=== PATIENT | male | born 1955 | race Caucasian/White ===

== ENCOUNTER → 2017-11-16 | Outpatient (CLI) | payer BC ==
[~2017-11-16] MED LIST: ASPIR 8181 MG PO; ATORVASTATIN CA20 MG PO; BUMETANIDE0.5 MG PO; CENTRUM SILVER1 EAC2 PO; DEXILANT60 MG PO; FIBER CHOICE PO; FISH OIL 1,0001 EAC2 PO; GARLIC1 EACH PO; LISINOPRIL-HCT1 EAC2 PO; LISINOPRIL/HCTZ PO; LOSARTAN POTASS25 MG PO; METOPROLOL SUCC25 MG PO; PANTOPRAZOLE SO40 MG PO; Z.0.NEXIUM40 MG MT; Z.0.NORCO 10-325 T1 MT; Z.0.ZOFRAN8 MG MT
--- NOTE | 2017-11-16 12:27 | Diagnostic Imaging Report ---
PROCEDURE: CT ABDOMEN AND PELVIS WITHOUT CONTRAST TECHNIQUE: The abdomen and pelvis were scanned utilizing a multidetector helical scanner from the diaphragm to the lesser trochanter after the oral administration of water. No IV contrast was administered per renal stone protocol. Coronal and sagittal multiplanar reformations were obtained. COMPARISON: [facility], CT, CT ABDOMEN/PELVIS , 02/17/2011, 22:25. INDICATIONS: CALCULUS OF THE KIDNEY FINDINGS: ABSENCE OF INTRAVENOUS CONTRAST DECREASES SENSITIVITY FOR DETECTION OF FOCAL LESIONS AND VASCULAR PATHOLOGY. KIDNEYS/URETERS: Right: 8-9 mm nonobstructing calculus in the right distal pelvis (series 3, image 79). Faint punctate, nonobstructing calculi are again noted in the superior pole (series 3, image 61, interpolar region (coronal image 73). Stable 5-6 mm nonobstructing calculus in the anterior mid to inferior aspect (series 3, image 81). No ureteral calculi, hydronephrosis, or obstruction. Stable mild perinephric stranding. Stable partially exophytic 0.9 and 1.3 simple cysts in the lateral interpolar region (series 3, image 76).. Left: Slight interval increase in size of 7 mm nonobstructing calculus in the superior pole (series 3, image 56, which previously measured 3-4 mm. Stable 3 mm nonobstructing calculus in the inferior pole (series 3, image 88). No ureteral calculi, hydronephrosis, or obstruction. Stable fluid density structures in the renal sinus, likely reflecting peripelvic cysts. Stable interval development of 1.6 cm mostly exophytic simple cyst in the superior to mid aspect (coronal image 69 and series 3, image 56). Stable mild perinephric stranding. PELVIC ORGANS/BLADDER: Bladder shows no focal lesions or wall thickening for degree of distention. No calculi. Prostatic enlargement, measuring 5.2 cm in transverse diameter.. Stable focal wedge-shaped atelectasis in the anterior left lower lobe adjacent to the major fissure (series 3, image 11. Lungs are otherwise clear. Visualized liver, spleen, pancreas, adrenal glands, gallbladder are unremarkable. Atherosclerotic calcification of the abdominal aorta and iliac vessels. Bowel shows no dilation, wall thickening, or obstruction. No lymphadenopathy. No aggressive lytic lesion. Soft tissues are grossly unremarkable. IMPRESSION: 1. bilateral nonobstructing calculi, as described. No ureteral calculi, hydronephrosis, or obstruction. 2. Stable right and new left simple renal cysts. 3. Prostatomegaly, likely due to BPH. Ross Galvan M.D. Dictated by: Ross Galvan M.D. on 11/16/2017 at 12:34 Electronically approved by: Ross Galvan M.D. on 11/16/2017 at 12:34
== END ==
LOC: CT 08:47
PROVIDERS: ATTEND Internal Medicine
DX: N20.0 Calculus of kidney (principal); N41.9 Inflammatory disease of prostate, unspecified
CPT/HCPCS: 74176

== ENCOUNTER → 2017-12-25 | Day surgery (SDC) | payer BC ==
[2017-12-24 12:11] LABS: BLOOD UREA NITROGEN 18 mg/dL (7-26); BUN/CREATININE RATIO 16 (6-25); CALCIUM 9.7 mg/dL (8.4-10.2); CARBON DIOXIDE 24 mmol/L (22-29); CHLORIDE 107 mmol/L (98-107); EST GLOMERULAR FILTRATION RATE > 60 ML/MIN (60-); GLUCOSE 136 mg/dL (74-118); SODIUM 141 mmol/L (136-145)
[~2017-12-25] MED LIST changes: +ACETAMINOPHEN 1000 MG/100 ML IV ONE; +ASPIR-LOW81 MG PO; +BELLADONNA/OPIUM 60 MG SUPP PR ONE; +BUPIVACAINE 0.25% 30ML SDV INJ ONE; +CEFAZOLIN SOD 1 GM VIAL ONE; +DEXAMETHASONE SOD PHOS INJ 4 MG/ML VIAL ONE; +FENTANYL CITRATE/PF 100MCG/2 ML INJ ONE; +IOPAMIDOL 610MG/1ML 300 MG/ML VIAL IV ONE; +KETOROLAC TROMETHAMINE 30 MG/ML VIAL ONE; +MENS VITAMIN PO; +MIDAZOLAM HCL 2 MG/2 ML VIAL ONE; +NEOSTIGMINE 1 MG/ML 10ML VIAL ONE; +ONDANSETRON HCL INJ 2 MG/ML VIAL ONE; +PROPOFOL IV EMULSION 10 MG/ML 20 ML VIAL ONE; +SEVOFLURANE INHAL SOLN 250 ML PEN BTL ONE
--- NOTE | 2017-12-25 05:45 | Diagnostic Imaging Report ---
EXAM: ABDOMEN-1VIEW (KUB) DATE: 12/25/2017 5:22 AM Time stamp on exam: 5:26 AM INDICATION: Presurgical assessment COMPARISON: CT of the abdomen and pelvis on 11/16/2017 FINDINGS: LINES/TUBES: None BOWEL PATTERN: No evidence for obstruction. SOFT TISSUES: No abnormal calcifications. No mass effect. LUNG BASES: Lung bases are clear BONES: No acute findings. IMPRESSION: Nonobstructive bowel gas pattern. Signed by: Dr. Dar Brown M.D. on 12/25/2017 5:41 AM
--- OUTSIDE RECORDS SUMMARY | 2017-12-25 07:02 | XMS REPORT ---
Author Author [facility] Address Unknown Phone Unavailable Care Team Providers Care Telecommunication Engineer Name Role Phone CYNDEE PLATT Unavailable Unavailable ORKYLE CREWS Unavailable Unavailable Problems This patient has no known problems. Allergies, Adverse Reactions, Alerts This patient has no known allergies or adverse reactions. Medications This patient has no known medications. Results Test Description Test Time Test Comments Text Results Atomic Results Result Comments ABDOMEN-1VIEW (KUB) [place] [address] Patient Name: JOAN WASSERMAN MR #: [id number] : 1955 Age/Sex: 62/M Req # : [id number] Adm Physician: Ordered by: CYNDEE PLATT MD Report #: [id number] Location: OR Room/Bed: Procedure: [id number] DX/ABDOMEN-1VIEW (KUB) Exam Date: 12/25/17 Exam Time : 0530 REPORT STATUS: Signed EXAM: ABDOMEN-1VIEW (KU) DATE: 2017 5:22 AM Time stamp on exam: 5:26 AM INDICATION: Presurgical assessment COMPARISON: CT of the abdomen and pelvis on 11/16/2017 FINDINGS: LINES/TUBES: None BOWEL PATTERN: No evidence for obstruction. SOFT TISSUES: No abnormal calcifications. No mass effect. LUNG BASES: Lung bases are clear BONES: No acute findings. IMPRESSION: Nonobstructive bowel gas pattern. Signed by: Dr. Dar Brown M.D. on 5:41 AM Dictated By: DAR FARLEY MD 0 Transcribed By: ROSALINA on 12/25/17540 COPY TO: CYNEDE PLATT MD CT ABDOMEN/PELVIS WO [place] [address] Patient Name: JOAN WASSERMAN MR #: [id number] : 1955 Age/Sex: 62/M Req # : [id number] Adm Physician: Ordered by: KYLE ACOSTA MD Report #: [id number] Location: CT Room/Bed: Procedure: [id number] CT/CT ABDOMEN/PELVIS WO Exam Date: 11/16/17 Exam Time: 0905 REPORT STATUS: Signed PROCEDURE: CT ABDOMEN AND PELVIS WITHOUT CONTRAST TECHNIQUE: The abdomen and pelvis were scanned utilizing a multidetector helical scanner from the diaphragm to the lesser trochanter after the oral administration of water. No IV contrast was administered per renal stone protocol. Coronal and sagittal multiplanar reformations were obtained. COMPARISON: [facility], CT, CT ABDOMEN/PELVIS WO, 02/17/2011, 22:25. INDICATIONS: CALCULUS OF THE KIDNEY FINDINGS: ABSENCE OF INTRAVENOUS CONTRAST DECREASES SENSITIVITY FOR DETECTION OF FOCAL LESIONS AND VASCULAR PATHOLOGY. KIDNEYS/URETERS: Right: 8-9 mm nonobstructing calculus in the right distal pelvis (series 3, image 79). Faint punctate, nonobstructing calculi are again noted in the superior pole (series 3, image 61, interpolar region ( coronal image 73). Stable 5-6 mm nonobstructing calculus in the anterior mid to inferior aspect (series 3, image 81). No ureteral calculi, hydronephrosis, or obstruction. Stable mild perinephric stranding. Stable partially exophytic 0.9 and 1.3 simple cysts in the lateral interpolar region (series 3, image 76).. Left: Slight interval increase in size of 7 mm nonobstructing calculus in the superior pole (series 3, image 56, which previously measured 3-4 mm. Stable 3 mm nonobstructing calculus in the inferior pole (series 3, image 88). No ureteral calculi, hydronephrosis, or obstruction. Stable fluid density structures in the renal sinus, likely reflecting peripelvic cysts. Stable interval development of 1.6 cm mostly exophytic simple cyst in the superior to mid aspect (coronal image 69 and series 3, image 56). Stable mild perinephric stranding. PELVIC ORGANS/ BLADDER: Bladder shows no focal lesions or wall thickening for degree of distention. No calculi. Prostatic enlargement, measuring 5.2 cm in transverse diameter.. Stable focal wedge-shaped atelectasis in the anterior left lower lobe adjacent to the major fissure (series 3, image 11. Lungs are otherwise clear. Visualized liver, spleen, pancreas, adrenal glands, gallbladder are unremarkable. Atherosclerotic calcification of the abdominal aorta and iliac vessels. Bowel shows no dilation, wall thickening, or obstruction. No lymphadenopathy. No aggressive lytic lesion. Soft tissues are grossly unremarkable. IMPRESSION: 1. bilateral nonobstructing calculi, as described. No ureteral calculi, hydronephrosis, or obstruction. 2. Stable right and new left simple renal cysts. 3. Prostatomegaly, likely due to BPH. Seng Galvan M.D. Dictated by: Seng Galvan M.D. on 11/16/2017 at 12:34 Electronically approved by: Seng Galvan M.D. on 11/16/2017 at 12:34 Dictated By: SENG GALVAN MD [id number] Transcribed By: MILDRED on 11/16/17 1234 COPY TO: KYLE ACOSTA MD
--- NOTE | 2018-02-24 12:31 | Operative Report ---
DATE OF PROCEDURE: December 25, 2017 PREOPERATIVE DIAGNOSES 1. Right nephrolithiasis. 2. Renal colic. 3. Hematuria. 4. Phimosis. POSTOPERATIVE DIAGNOSES 1. Right nephrolithiasis. 2. Renal colic. 3. Hematuria. 4. Phimosis. 5. Urethral stricture disease of the fossa navicularis and urethral meatus. OPERATIONS PERFORMED 1. Right-sided extracorporal shock wave lithotripsy (separate staged procedure to manage the patient's nephrolithiasis). 2. Circumcision. 3. Penile nerve block (separate procedure performed for postoperative pain control not required for the actual performance of the surgery, which is done under general anesthesia). 4. Cystourethroscopy with calibration and dilation of urethral stricture disease (separate procedure performed for the diagnosis of stricture). 5. Cystourethroscopy with bilateral ureteral dilatation and retrograde ureteropyelography (separate procedure performed to complete hematuria workup). 6. Interpretation of retrograde ureteropyelography. 7. Supervision of fluoroscopy. No radiologist present. 8. Cystourethroscopy with insertion of a right indwelling ureteral stent (separate procedure performed to relieve the renal colic). ANESTHESIA: General. COMPLICATIONS: None. CLINICAL SUMMARY: Adolfo Rivas is a 62-year-old male with bilateral nephrolithiasis and phimosis. He is brought for the above procedures. He is aware of the risks of bleeding, infection, injury to adjacent structures. He understands he will need additional procedures to manage his left-sided stone. He understood all these risks, and elected to proceed. OPERATIVE PROCEDURE IN DETAIL: Informed consent was verified. Adolfo Rivsa was properly identified and taken to the operating room and placed on the lithotripsy table in the supine position. Anesthesia was uneventfully begun. The patient's right ureteropelvic junction and renal pelvis stone was identified with biplanar fluoroscopy. A total of 2500 shocks were delivered with fragmentation noted. The patient's genitalia were prepared and draped in the usual sterile fashion. Marcaine without epinephrine was utilized to infiltrate subcutaneously circumferentially at the base of penis, as well as in the region of the dorsal penile nerves. This was done for postoperative pain control and not required for the actual performance the of surgery, which was done under general anesthesia. A circumferential incision was then made overlying the bonilla of the glans penis. The foreskin was fully retracted. A secondary incision made approximately 5 mm away from the bonilla of the glans penis along the inner preputial skin. A sleeve was then performed. The foreskin was removed. Pinpoint electrocautery was utilized to achieve hemostasis. The patient's incisions were approximated with 4-0 chromic suture in a running fashion. Cosmetic result was achieved. The patient was carefully and gently repositioned in the dorsal lithotomy position. All pressure points were well-padded. His genitalia were prepared and draped in the usual sterile fashion. The 22.5-Bermudian cystoscope sheath with the visual obturator in place was unable to be placed into the urethra meatus due to stricturing. We then utilized sounds to sound the patient's urethral meatus in the approximate region and approximately 14-Bermudian in size. We progressively dilated gently to 26-Bermudian in size. Once this was performed, we were able to place the 22.5-Bermudian cystoscope sheath with the visual obturator in place. It was guided down the otherwise unremarkable urethra past a normal sphincteric region through the prostate bed and into the patient's bladder, which exhibited trabeculations. Careful panendoscopy revealed no suspicious gross lesions. No tumors. No stones. A ureteral catheter was used to cannulate each ureter, and retrograde ureteropyelograms were performed. With cystoscopic and fluoroscopic guidance, a right-sided indwelling ureteral stent was then placed. It was coiled in the patient's kidney, as well as the patient's bladder. The retaining suture was cut short. Interpretation of retrograde ureteropyelography. Contrast was instilled in a retrograde fashion bilaterally. The left hand side exhibited hydronephrosis. The stone was visualized. It was nonobstructing. The ureter was unremarkable with no tumors. No suspicious lesions. The left-hand sided ureteral stone, as well as other filling defects, which were presumably blood clots from the lithotripsy. The stent was in good position and coiled in the patient's right kidney, as well as the patient's bladder at the end of the case. The patient's bladder was drained. The cystoscope was withdrawn. Plans will be to return the patient to the operating room for a left ESWL in conjunction, as well as right ureteroscopy with Holmium laser standby. Job#: [id number] RI cc: KYLE ACOSTA MD [facility]
== END | disposition home or self-care (01) ==
LOC: OR 07:00
PROVIDERS: ATTEND Urology
DX: N20.0 Calculus of kidney (principal); N47.1 Phimosis; N35.9 Urethral stricture, unspecified; N13.30 Unspecified hydronephrosis; N32.89 Other specified disorders of bladder; N47.7 Other inflammatory diseases of prepuce; I10 Essential (primary) hypertension; N40.1 Benign prostatic hyperplasia with lower urinary tract symptoms; E66.01 Morbid (severe) obesity due to excess calories; N43.40 Spermatocele of epididymis, unspecified; K42.9 Umbilical hernia without obstruction or gangrene; Z01.810 Encounter for preprocedural cardiovascular examination; Z01.812 Encounter for preprocedural laboratory examination; Z68.30 Body mass index [BMI] 30.0-30.9, adult; Z84.1 Family history of disorders of kidney and ureter; Z80.42 Family history of malignant neoplasm of prostate; Z80.52 Family history of malignant neoplasm of bladder
CPT/HCPCS: 36415; 50590; 52332; 54161; 74018; 80048; 88304; 93005; J0690; J1100; J1885; J2250; J2405; J2710; Q9967

== ENCOUNTER → 2018-01-18 | Day surgery (SDC) | payer BC ==
[~2018-01-18] MED LIST changes: -ACETAMINOPHEN 1000 MG/100 ML IV ONE; +AZO PO; -BUPIVACAINE 0.25% 30ML SDV INJ ONE; +FLOMAX0.4 MG PO; -KETOROLAC TROMETHAMINE 30 MG/ML VIAL ONE; +LIDOCAINE HCL 2% LOCAL INJ 5 ML SDV VIAL INJ ONE; -NEOSTIGMINE 1 MG/ML 10ML VIAL ONE; +OXYBUTYNIN CHLOR5 MG PO; +TYLENOL WITH C1 EACH PO
[2018-01-18 07:01] LABS: BASOPHILS % 0.7 % (0.0-1.0); EOSINOPHILS # (AUTO) 0.3 (0.0-0.4); EOSINOPHILS % 4.9 % (0.0-6.0); HEMATOCRIT 39.3 % (38.2-49.6); HEMOGLOBIN 13.7 g/dL (14.0-18.0); LYMPHOCYTES # (AUTO) 1.8 (1.0-3.2); LYMPHOCYTES % 29.6 % (18.0-39.1); MEAN CORPUSCULAR HEMOGLOBIN 29.1 pg (28-32); MEAN CORPUSCULAR HGB CONC 34.9 g/dL (31-35); MEAN CORPUSCULAR VOLUME 83.4 fL (81-99); MONOCYTES # (AUTO) 0.4 (0.2-0.8); MONOCYTES % 5.9 % (4.4-11.3); NEUTROPHILS # (AUTO) 3.6 (2.1-6.9); NEUTROPHILS % 58.7 % (38.7-80.0); PLATELET COUNT 234 x10e3/uL (140-360); RED BLOOD COUNT 4.71 x10e6/uL (4.3-5.7); RED CELL DISTRIBUTION WIDTH 12.9 % (11.7-14.4)
[2018-01-18 07:21] LABS: ANION GAP 12.5 mmol/L (8-16); BLOOD UREA NITROGEN 14 mg/dL (7-26); BUN/CREATININE RATIO 14 (6-25); CALCIUM 9.2 mg/dL (8.4-10.2); CARBON DIOXIDE 22 mmol/L (22-29); CHLORIDE 108 mmol/L (98-107); CREATININE, SERUM 0.99 mg/dL (0.72-1.25); EST GLOMERULAR FILTRATION RATE > 60 ML/MIN (60-); GLUCOSE 113 mg/dL (74-118); POTASSIUM 3.5 mmol/L (3.5-5.1); SODIUM 139 mmol/L (136-145)
--- NOTE | 2018-01-18 08:07 | Diagnostic Imaging Report ---
PROCEDURE:X-RAY ABDOMEN - KUB COMPARISON:[facility], CT, CT ABDOMEN/PELVIS WO, 11/16/2017, 9:04. [facility], DX, ABDOMEN-1VIEW (KUB), 12/25/2017, 5:26. INDICATIONS:PRE- OP LEFT SIDE KIDNEY STONE SURGERY FINDINGS: There is a right double-J ureteral stent present. Stone measuring 6 mm is noted adjacent to the stent within the proximal ureter at the L3 level. Left upper pole renal stone is faintly visible and partially obscured by overlying bowel gas. There are no dilated loops of bowel to suggest obstruction. There are no masses. There is no evidence of free air. No acute osseous abnormalities are present. CONCLUSION: 1. Right double-J ureteral stent with the adjacent proximal ureteral stone. 2. Left upper pole renal stone partially obscured by overlying bowel gas. Pepito Wallace D.O. Dictated by: Pepito Wallace D.O. on 01/18/2018 at 8:06 Electronically approved by: Pepito Wallace D.O. on 01/18/2018 at 8:06
--- NOTE | 2018-03-07 01:52 | Operative Report ---
DATE OF PROCEDURE: January 18, 2018 PREOPERATIVE DIAGNOSIS: Right nephrolithiasis. POSTOPERATIVE DIAGNOSES: 1. Right nephrolithiasis. 2. Distal urethral stricture. OPERATIONS PERFORMED: 1. Right-sided extracorporeal shock wave lithotripsy (separate procedure performed for the right nephrolithiasis performed in a staged fashion). 2. Supervision of fluoroscopy, no radiologist present. 3. Cystourethroscopy with calibration and dilation of urethral stricture (separate procedure performed for the urethral stricture). ANESTHESIA: General. COMPLICATIONS: None. CLINICAL SUMMARY: Adolfo Rivas is a 62-year-old man with right nephrolithiasis, has ureteral stent in place. He is brought to the operating room today for ESWL. He is aware of the risks of bleeding, infection, injury to adjacent structures, need for additional procedures, and elected to proceed. Patient also reported some voiding symptomatology and he wants to be evaluated for urethral stricture disease, which may be affecting his urination. OPERATIVE PROCEDURE IN DETAIL: Informed consent was verified. Adolfo Rivas was properly identified, taken to the operating room and placed on the lithotripsy table in supine position. Anesthesia was uneventfully begun. The patient's right ureteropelvic junction stone was localized with biplanar fluoroscopy. A total of 3000 shocks were delivered with some degree of fragmentation noted. The flexible cystoscope could not be easily placed into patient's urethral meatus past the fossa navicularis. We then calibrated the urethral stricture at approximately 12-Namibian in size and progressively dilated to 26-Namibian in size. The last dilator was held in place for a number of minutes in order to hopefully keep it open. We then placed the flexible cystoscope into the patient's urethra. We guided it down the otherwise unremarkable urethra, past a normal sphincteric region through the prostate bed, which was significant for bilobar prostatic hypertrophy with visual obstruction. We entered the patient's bladder where panendoscopy revealed no suspicious mucosal lesions, no tumors, and no stones. There was some mild encrustation of right indwelling ureteral stent. The patient's bladder was drained. The cystoscope was withdrawn. The patient was then uneventfully reversed from anesthesia and taken to recovery room in stable condition. There were no complications to the procedure. He tolerated the procedure well. Explicit postoperative instructions were given. Will plan to return back to the operating room for an additional stone surgery. This may involve a right ESWL, it may also involve a left ESWL with a right ureteroscopy and laser. Job#: [id number]
== END | disposition home or self-care (01) ==
LOC: OR 06:57
PROVIDERS: ATTEND Urology
DX: N20.0 Calculus of kidney (principal); N35.9 Urethral stricture, unspecified; Z96.0 Presence of urogenital implants; N40.1 Benign prostatic hyperplasia with lower urinary tract symptoms; N13.8 Other obstructive and reflux uropathy; N47.1 Phimosis; N43.40 Spermatocele of epididymis, unspecified; I10 Essential (primary) hypertension; K21.9 Gastro-esophageal reflux disease without esophagitis; E66.01 Morbid (severe) obesity due to excess calories; K42.9 Umbilical hernia without obstruction or gangrene; Z79.82 Long term (current) use of aspirin; Z68.30 Body mass index [BMI] 30.0-30.9, adult; Z84.1 Family history of disorders of kidney and ureter
CPT/HCPCS: 36415; 50590; 52281; 74018; 80048; 83970; 84550; 85025; J0690; J1100; J2001; J2250; J2405

== ENCOUNTER → 2018-02-22 | Outpatient (CLI) | payer BC ==
[~2018-02-22] MED LIST changes: -AZO PO; -BELLADONNA/OPIUM 60 MG SUPP PR ONE; -CEFAZOLIN SOD 1 GM VIAL ONE; -DEXAMETHASONE SOD PHOS INJ 4 MG/ML VIAL ONE; -FENTANYL CITRATE/PF 100MCG/2 ML INJ ONE; -FLOMAX0.4 MG PO; -IOPAMIDOL 610MG/1ML 300 MG/ML VIAL IV ONE; -LIDOCAINE HCL 2% LOCAL INJ 5 ML SDV VIAL INJ ONE; -MIDAZOLAM HCL 2 MG/2 ML VIAL ONE; -ONDANSETRON HCL INJ 2 MG/ML VIAL ONE; -OXYBUTYNIN CHLOR5 MG PO; -PROPOFOL IV EMULSION 10 MG/ML 20 ML VIAL ONE; -SEVOFLURANE INHAL SOLN 250 ML PEN BTL ONE; -TYLENOL WITH C1 EACH PO
--- NOTE | 2018-02-27 05:09 | Pulmonary Function Test ---
DATE OF STUDY: February 22, 2018 Restrictive spirometry: Forced vital capacity 3.83 liters, 71% of predicted. FEV1 3.16 liters, 77%. FEV1: FVC ratio 82%. ALF77-55, 91%. Diffusion capacity is moderately reduced 25.25, 74% of predicted, suggesting loss of alveolar units or ventilation perfusion imbalance. Lung volumes are increased. Total lung capacity 12.09 liters, 151% of predicted. This combination of findings suggests obstructive pulmonary disease involving small airways. Job#: [id number] EV
== END ==
LOC: RESP 08:49
PROVIDERS: ATTEND Internal Medicine
DX: R05 Cough (principal); J42 Unspecified chronic bronchitis
CPT/HCPCS: 94010; 94727; 94729

== ENCOUNTER → 2018-02-28 | Day surgery (SDC) | payer BC ==
[~2018-02-28] MED LIST changes: +AZO PO; +BELLADONNA/OPIUM 60 MG SUPP PR ONE; +CEFTRIAXONE SOD 1 GM VIAL ONE; +DEXAMETHASONE SOD PHOS INJ 4 MG/ML VIAL ONE; +FENTANYL CITRATE/PF 100MCG/2 ML INJ ONE; +FLOMAX0.4 MG PO; +GENTAMICIN 80MG/NS 100 ML 200 ML IV ONE; +GLYCOPYRROLATE INJ 1MG/ 5 ML SYR ONE; +IOPAMIDOL 610MG/1ML 300 MG/ML VIAL IV ONE; +LIDOCAINE HCL 2% LOCAL INJ 5 ML SDV VIAL INJ ONE; +MIDAZOLAM HCL 2 MG/2 ML VIAL ONE; +ONDANSETRON HCL INJ 2 MG/ML VIAL ONE; +OXYBUTYNIN CHLOR5 MG PO; +PROPOFOL IV EMULSION 10 MG/ML 20 ML VIAL ONE; +SEVOFLURANE INHAL SOLN 250 ML PEN BTL ONE; +TYLENOL WITH C1 EACH PO
--- NOTE | 2018-02-28 07:07 | Diagnostic Imaging Report ---
Exam: Abdominal film Clinical History: Preoperative study for lithotripsy Comparison: 01/18/2018 DISCUSSION: Right internal ureteral stent is unchanged in position and previously described 6 mm calculus projecting along the proximal aspect of the stent is no longer visualized; rather there are now 4-5 calculi along the midportion of the stent at the level of L4-L5, ranging in size from 2 to 4 mm. Additionally, there is an 8 mm calculus projecting over the upper pole of the left renal shadow, unchanged. Bowel gas pattern is nonobstructive. Regional skeletal structures intact. IMPRESSION: Stable position of right internal ureteral stent with interval fragmentation and distal migration of the previously described 6 mm calculus alongside the proximal portion of the stent. 4-5 small calculi ranging in size from 2 to 4 mm now lie along side the midportion of the stent. 8 mm left upper pole renal calculus unchanged. Signed by: Dr. Seng Bhatia M.D. on 02/28/2018 7:03 AM
--- NOTE | 2018-04-16 01:58 | Operative Report ---
DATE OF PROCEDURE: February 28, 2018 PREOPERATIVE DIAGNOSES: 1. Urolithiasis. 2. Potential for renal colic. 3. Indwelling ureteral stents. POSTOPERATIVE DIAGNOSES: 1. Left nephrolithiasis. 2. Right ureterolithiasis. 3. Right ureteral stricture. 4. Right hydronephrosis due to stricture. 5. Potential for left renal colic. 6. Foreign body (indwelling ureteral stent). 7. Urethral stricture disease. OPERATIONS PERFORMED: Note these were all staged procedures as part of a multistage, multistep process in managing the patient's urolithiasis. 1. Left-sided extracorporeal shock wave lithotripsy (separate procedure performed for the diagnosis of the stone located in the left kidney). 2. Right ureteroscopy with stone manipulation (separate procedure performed for the right ureterolithiasis). 3. Right ureteroscopy with dilation of stricture (separate procedure performed for the diagnosis of the stricture). 4. Cystourethroscopy with insertion of right indwelling ureteral stent (separate procedure performed to relieve the right hydronephrosis). 5. Cystourethroscopy with insertion of left indwelling ureteral stent (separate procedure performed to prevent renal colic). 6. Radiological services for supervision and interpretation of ureteroscopy. 7. Interpretation of retrograde ureteropyelography. 8. Supervision of fluoroscopy, no radiologist present. 9. Cystourethroscopy with complicated removal of right indwelling ureteral stents (separate procedure performed with separate scope for the diagnosis of stent). 10. Cystourethroscopy with calibration and dilation of urethral stricture disease. ANESTHESIA: General. COMPLICATIONS: None. CLINICAL SUMMARY: Adolfo Rivas is a 62-year-old man with bilateral urolithiasis. The patient is status post right ESWL on January 20 as well as a procedure on December 23. The patient is brought for management of his stones. He is aware of the risks of bleeding, infection, injury to adjacent structures, need for additional procedures, and elected to proceed. OPERATIVE PROCEDURE IN DETAIL: Informed consent was verified. Adolfo Rivas was properly identified, taken to the operating room and placed on the lithotripsy table in supine position. Anesthesia was uneventfully begun. The patient's left nephrolithiasis was localized with biplanar fluoroscopy. A total of 3000 shocks were delivered to treat the upper pole 8-mm stone. Some fragmentation was noted. The patient was then carefully and gently repositioned in the dorsal lithotomy position with all pressure points well padded. His genitalia were prepared and draped in usual sterile fashion. The 22.5-[place] Luc[place] cystoscope sheath with the visual obturator in place could not be placed past the fossa navicularis. Urethral meatus and distal urethra was then calibrated to 18-[place] Lucian in size and dilated to 26-[place] Lucian in size. This allowed the cystoscope to be inserted into patient's urethra. It was then guided down the unremarkable urethra past a normal sphincteric region into the patient's prostate bed which was significant for visually obstructing BPH. We entered the patient's bladder which showed diverticula, the stent emerging from the right ureteral orifice was encrusted. A guidewire was then placed alongside the stent and guided to level of the patient's kidney. The stent was then grasped, completely removed, and discarded. Ureteroscopy on the right hand side was performed. We guided the ureteroscope into the ureter where we identified multiple stone fragments. Multiple passes were made with the ureteroscope in order to remove. A semirigid ureteroscope was then inserted into the right ureter. It was guided alongside the stent to the mid ureter. We identified the mid ureteral stricture. This ureteral stricture was then gently dilated utilizing the ureteroscope over a secondary guidewire. This was uneventful. The flexible ureteroscope was then placed over the secondary guidewire and guided to level of the proximal ureter. We identified multiple stone fragments. These stone fragments were each extracted with a passing of the ureteroscope atraumatically. A flexible ureteroscopy sheath was utilized to avoid further ureteral scarring if possible. Once all ureteral stone fragments were removed, we entered the patient's intrarenal collecting system where there were Olivier's plaques present throughout, but no stones within the intrarenal collecting system. With cystoscopic and fluoroscopic guidance, a right-sided indwelling ureteral stent was then placed. It was coiled in patient's kidney as well as patient's bladder. The retaining suture was cut short. This stent was a 6-St Lucian x 28 cm indwelling ureteral stent. With cystoscopic and fluoroscopic guidance, a left-sided indwelling ureteral stent was then placed. This was a 4.5-St Lucian x 26 cm indwelling ureteral stent. It was coiled in patient's kidney as well as patient's bladder at the end of the case. Interpretation of retrograde ureteropyelography: Contrast was instilled in retrograde fashion bilaterally. There was right side hydroureteronephrosis down to the level of patient's ureteral stricture which was in turn dilated. The stent was in good position, coiled in patient's kidney as well as patient's bladder at the end of the case. The left hand side exhibited filling defects in the upper pole consistent with the previously performed ESWL. The stent was in good position, coiled in patient's kidney as well as patient's bladder at the end of the case. The patient's bladder was then drained. The cystoscope was withdrawn. A belladonna and opium suppository was placed revealing a 40 g prostate, smooth, non-fluctuant, and without any nodules. The patient was then uneventfully reversed from anesthesia and taken to recovery room in stable condition. There were no complications to the procedure. He tolerated the procedure well. Explicit postoperative instructions were given. Will plan on returning the patient to the operating room to remove his stents, performing bilateral ureteroscopies, manage stones as needed, and hopefully render the patient stent-free and stone-free. Job#: [id number]
== END | disposition home or self-care (01) ==
LOC: OR 06:52
PROVIDERS: ATTEND Urology
DX: N20.0 Calculus of kidney (principal); N20.1 Calculus of ureter; N13.1 Hydronephrosis with ureteral stricture, not elsewhere classified; N35.9 Urethral stricture, unspecified; Z46.6 Encounter for fitting and adjustment of urinary device; N40.1 Benign prostatic hyperplasia with lower urinary tract symptoms; N13.8 Other obstructive and reflux uropathy; N32.3 Diverticulum of bladder; K21.9 Gastro-esophageal reflux disease without esophagitis; I10 Essential (primary) hypertension; E78.5 Hyperlipidemia, unspecified; Z79.82 Long term (current) use of aspirin
CPT/HCPCS: 50590; 52332; 52344; 74018; 88300; C1766; C2617; J0696; J1100; J1580; J2001; J2250; J2405; Q9967

== ENCOUNTER → 2018-03-27 | Day surgery (SDC) | payer BC ==
[2018-03-25 13:00] LABS: ANION GAP 12.2 mmol/L (8-16); BLOOD UREA NITROGEN 16 mg/dL (7-26); BUN/CREATININE RATIO 16 (6-25); CALCIUM 9.7 mg/dL (8.4-10.2); CARBON DIOXIDE 24 mmol/L (22-29); CHLORIDE 109 mmol/L (98-107); CREATININE, SERUM 1.02 mg/dL (0.72-1.25); EST GLOMERULAR FILTRATION RATE > 60 ML/MIN (60-); GLUCOSE 100 mg/dL (74-118); POTASSIUM 4.2 mmol/L (3.5-5.1); SODIUM 141 mmol/L (136-145)
[~2018-03-27] MED LIST changes: +GENTAMICIN 80MG/NS 100 ML 100 ML IV ONE; -GENTAMICIN 80MG/NS 100 ML 200 ML IV ONE; -GLYCOPYRROLATE INJ 1MG/ 5 ML SYR ONE; +KETOROLAC TROMETHAMINE 30 MG/ML VIAL ONE
--- NOTE | 2018-05-05 02:52 | Operative Report ---
DATE OF PROCEDURE: March 27, 2018 PREOPERATIVE DIAGNOSES 1. Bilateral nephrolithiasis. 2. Bilateral indwelling urethral stents. 3. Urethral stricture disease. POSTOPERATIVE DIAGNOSES 1. Bilateral nephrolithiasis. 2. Bilateral indwelling urethral stents. 3. Urethral stricture disease. PROCEDURES PERFORMED: Note: These are all staged procedures as part of a multi-stage multi-step process of managing the patient's urolithiasis. 1. Cystourethroscopy with calibration and dilation of urethral stricture (separately performed for the diagnosis of stricture). 2. Cystourethroscopy with removal of indwelling ureteral stents (separately performed for the diagnosis of stents). 3. Right ureteroscopy with stone manipulation (separately performed for the right nephrolithiasis). 4. Left ureteroscopy with stone manipulation (separately performed for the left nephrolithiasis). 5. Urological services for supervision and interpretation of ureteroscopy. 6. Interpretation of retrograde ureteropyelography. 7. Supervision of fluoroscopy; no radiologist present. ANESTHESIA: General. COMPLICATIONS: None. CLINICAL SUMMARY: Adolfo Rivas is a 62-year-old man with bilateral urolithiasis who is brought for what we hope is the last stage of his stone management. He is aware of the risks of bleeding, infection, injury to adjacent structures, and need for additional procedures and elected to proceed. OPERATIVE PROCEDURE IN DETAIL: Informed consent was verified. Gus. Carlos A Rivas was properly identified, taken to operating room, and placed on the cystoscopy table in the supine position. Anesthesia was uneventfully begun. The patient was then carefully and gently repositioned in the dorsal lithotomy position with all pressure points carefully well padded. His genitalia were prepared and draped in the usual sterile fashion. The 22.5-[place] cystoscope sheath with a visual obturator in place was placed in the patient distal urethra but could not be passed by through the fossa navicularis. We, therefore, calibrated the fossa navicularis to approximately 18-[place] in size and dilated it progressively to 26-[place] Korean in size. This allowed us to easily place the cystoscope sheath anterior to the patient's otherwise unremarkable urethra, guided to pass through normal sphincteric region. Anteriorly, the prostate bed was significant for visually obstructing BPH. The most prominent location of obstruction was the apical region where the left lateral lobe was encroaching into the prostatic urethra and actually extends beyond midline over to the right hand side causing significant visual obstruction. The prostate bed was also significant for an elevated median bar with a small nubbin of an early median lobe. Going to the patient's bladder where we identified stents, significant amount of sand was also present in the patient's bladder and this was evacuated. A guidewire was then placed into the right ureter and the stent was then grasped completely, removed, and discarded. Flexible ureteroscopy was then performed. We brought the flexible ureteroscope up into the right renal pelvis where we identified a stone. No additional stones remained. were present throughout. No suspicious lesions were identified. The stone was grasped with Nitinol Tipless basket and atraumatically extracted. An identical maneuvering was performed on the left hand side. Also on the left hand side, we performed stone manipulation as well. No suspicious lesions were noted and there were throughout. The patient's bladder was then drained. The cystoscope was withdrawn. Additional findings during the surgery included the fact that the patient had a previous circumcision and still has inflammation of the glans penis. The patient was noted to have what appears to be a possible mucosal flap versus a small type of polyp in the right distal ureter. This is non-obstructing and does not appear suspicious. There was significant amount of sand noted bilaterally in the kidneys. This sand was manipulated and irrigated loose from the mucosa so that hopefully it will facilitate the passage of sand. No significantly sized stones remained in either kidney. Also, extracted significant amount of sand from the bladder during this case. Plans will be to follow the patient up for uroflowmetry and bladder ultrasonography to evaluate his voiding and also for metabolic stone workup and help to prevent future stone disease in this patient with significant bilateral disease. Job#: [id number] SEE
== END | disposition home or self-care (01) ==
LOC: OR 07:19
PROVIDERS: ATTEND Urology
DX: N20.0 Calculus of kidney (principal); N35.9 Urethral stricture, unspecified; N40.1 Benign prostatic hyperplasia with lower urinary tract symptoms; Z46.6 Encounter for fitting and adjustment of urinary device; N48.29 Other inflammatory disorders of penis; J44.9 Chronic obstructive pulmonary disease, unspecified; I10 Essential (primary) hypertension; E78.5 Hyperlipidemia, unspecified; K21.9 Gastro-esophageal reflux disease without esophagitis; Z01.812 Encounter for preprocedural laboratory examination; Z79.82 Long term (current) use of aspirin
CPT/HCPCS: 36415; 52352; 74420; 80048; 88300; J0696; J1100; J1580; J1885; J2001; J2250; J2405; Q9967

== ENCOUNTER → 2018-06-28 | Outpatient (CLI) | payer BC ==
[~2018-06-28] MED LIST changes: -BELLADONNA/OPIUM 60 MG SUPP PR ONE; -CEFTRIAXONE SOD 1 GM VIAL ONE; -DEXAMETHASONE SOD PHOS INJ 4 MG/ML VIAL ONE; -FENTANYL CITRATE/PF 100MCG/2 ML INJ ONE; -GENTAMICIN 80MG/NS 100 ML 100 ML IV ONE; -IOPAMIDOL 610MG/1ML 300 MG/ML VIAL IV ONE; -KETOROLAC TROMETHAMINE 30 MG/ML VIAL ONE; -LIDOCAINE HCL 2% LOCAL INJ 5 ML SDV VIAL INJ ONE; -MIDAZOLAM HCL 2 MG/2 ML VIAL ONE; -ONDANSETRON HCL INJ 2 MG/ML VIAL ONE; -PROPOFOL IV EMULSION 10 MG/ML 20 ML VIAL ONE; -SEVOFLURANE INHAL SOLN 250 ML PEN BTL ONE
--- NOTE | 2018-06-28 13:30 | Diagnostic Imaging Report ---
EXAMINATION: CHEST 2 VIEWS INDICATION: \S\Bronchitis, not specified as acute or chronic COMPARISON: Chest radiograph 09/17/[address] abdomen and pelvis 11/16/2017 FINDINGS: PA and lateral views TUBES and LINES: None. LUNGS: Lungs are well inflated. Reticular nodular consolidation in the right lower lobe with extensive peribronchial wall thickening. Pleural-based nodular opacity in the left lower lobe is unchanged since 11/16/2017, likely representing pleural scarring from adjacent rib fracture. PLEURA: No pleural effusion or pneumothorax. HEART AND MEDIASTINUM: The cardiomediastinal silhouette is unremarkable. BONES AND SOFT TISSUES: Unchanged multiple left-sided rib fractures. Soft tissues are unremarkable. UPPER ABDOMEN: No free air under the diaphragm. IMPRESSION: Right lower lobe consolidation with peribronchial wall thickening, new since prior exam and highly suggestive of pneumonia. Recommend follow-up chest radiograph in 6-8 weeks. Signed by: Dr. Annita Smith M.D. on 06/28/2018 1:26 PM
== END ==
LOC: RAD 12:54
PROVIDERS: ATTEND Internal Medicine
DX: J40 Bronchitis, not specified as acute or chronic (principal)
CPT/HCPCS: 71046

== ENCOUNTER → 2018-07-25 | Outpatient (CLI) | payer BC ==
--- NOTE | 2018-07-25 14:43 | Diagnostic Imaging Report ---
EXAMINATION: CHEST 2 VIEWS INDICATION: Pneumonia COMPARISON: 06/28/2018 FINDINGS: TUBES and LINES: None. LUNGS: Lungs are well inflated. Interval improved aeration of the right lung when compared with the prior exam. There is what appears to be minimal scarring/atelectasis in the region. There is no evidence of consolidated pneumonia or pulmonary edema. PLEURA: No pleural effusion or pneumothorax. HEART AND MEDIASTINUM: The cardiomediastinal silhouette is unremarkable. BONES AND SOFT TISSUES: No acute osseous lesion. Soft tissues are unremarkable. UPPER ABDOMEN: No free air under the diaphragm. IMPRESSION: Interval improved aeration of the right lung when compared with the prior exam. There is what appears to be minimal scarring/atelectasis in the region. There is no evidence of consolidated pneumonia or pulmonary edema Signed by: Dr. Modesto Holguin M.D. on 07/25/2018 2:39 PM
== END ==
LOC: RAD 14:10
PROVIDERS: ATTEND Internal Medicine
DX: J18.9 Pneumonia, unspecified organism (principal)
CPT/HCPCS: 71046

== ENCOUNTER → 2018-08-29 | Day surgery (SDC) | payer BC ==
[~2018-08-29] MED LIST changes: +FENTANYL CITRATE/PF 100MCG/2 ML INJ ONE; +FINASTERIDE5 MG PO; +HYOSCYAMINE SULFATE 0.5 MG/ML INJ ONE; +LIDOCAINE HCL 2% LOCAL INJ 5 ML SDV VIAL INJ ONE; +MIDAZOLAM HCL 2 MG/2 ML VIAL ONE; +PROPOFOL IV EMULSION 10 MG/ML 50 ML VIAL ONE; +SPIRIVA18 MCG INH
[2018-08-29 11:00] VITALS: BP 134/94
--- NOTE | 2018-08-29 11:30 | Operative Report ---
DATE OF PROCEDURE: August 29, 2018 REFERRING PHYSICIAN: Dr. Zak Acosta PROCEDURES PERFORMED 1. Esophagogastroduodenoscopy with esophageal dilatation and biopsies. 2. Colonoscopy with polypectomy. INDICATIONS FOR EGD: Dysphagia. INDICATIONS FOR COLONOSCOPY: Personal history of colon polyps, surveillance colonoscopy. MEDICATION: Patient was done under MAC. Please see anesthesiologist's note. PROCEDURE: With the patient in the left lateral decubitus position, the flexible fiberoptic Olympus gastroscope was introduced into the esophagus under direct visualization without any difficulty. There was a mild stricture noted in the cervical esophagus, and that was dilated to size 50-[place]ones[place] Springer. A minute tongue of velvety red mucosa was noted to extend proximally from the GE junction. That was biopsied to rule out Dao's. The scope was then advanced with ease into the stomach. Mucosa overlying the antrum and the body revealed some patchy erythema and low-grade edema, and biopsies were obtained and sent to stain for H. pylori. Pylorus appeared to be of normal contour and shape. It was intubated with ease, and the scope was advanced all the way to the 2nd portion of the duodenum. Biopsies were obtained from the proximal 2nd portion to rule out sprue. Mucosa overlying the duodenal bulb appeared to be within normal limits. The scope was then withdrawn back into the stomach and retroflexed. The mucosa overlying the fundus and cardia appeared to be within normal limits. The scope was then straightened out. Stomach was decompressed. Scope was subsequently withdrawn. Patient tolerated the procedure well. IMPRESSION 1. Esophageal stricture, cervical esophagus, dilated to size 50-[place] Springer. 2. Mild distal esophagitis. 3. Rule out Dao's esophagus. 4. Gastritis, biopsied. Biopsies sent to stain for H. pylori. 5. Rule out sprue. PLAN: Follow up histology. Continue Protonix 40 mg 1 p.o. a.c. b.i.d. The patient was then turned around. After adequate lubrication of the anal canal, a flexible fiberoptic Olympus colonoscope was inserted into the rectum with ease and advanced all the way to the cecum. It was then withdrawn slowly. Mucosa overlying the cecum, ascending colon and transverse colon appeared to be within normal limits. One polyp was hot biopsied from the descending colon. The sigmoid and rectum grossly appeared to be within normal limits. The scope was then retroflexed into the distal rectum, and small internal hemorrhoids were noted, none of which was actively bleeding. The scope was then straightened out. It was subsequently withdrawn. Patient tolerated the procedure well. IMPRESSION 1. Descending colon polyp, hot biopsied. 2. Internal hemorrhoids, none actively bleeding. PLAN: Follow up histology. Initiate high-fiber, low-fat diet. Initiate high-fiber supplement. Patient might benefit from a followup colonoscopy in 3 to 5 years. Job#: [id number] cc:ZAK ACOSTA MD
== END | disposition home or self-care (01) ==
LOC: OR 06:58
PROVIDERS: ATTEND Internal Medicine Gastroenterology
DX: Z12.11 Encounter for screening for malignant neoplasm of colon (principal); K63.5 Polyp of colon; K29.70 Gastritis, unspecified, without bleeding; K22.2 Esophageal obstruction; K20.9 Esophagitis, unspecified; K64.8 Other hemorrhoids; K21.9 Gastro-esophageal reflux disease without esophagitis; J44.9 Chronic obstructive pulmonary disease, unspecified; I20.9 Angina pectoris, unspecified; I10 Essential (primary) hypertension; E78.5 Hyperlipidemia, unspecified; Z01.810 Encounter for preprocedural cardiovascular examination; Z79.82 Long term (current) use of aspirin
CPT/HCPCS: 43239; 43450; 45384; 93005; J1980; J2001; J2250; 45378

== ENCOUNTER → 2018-11-19 | Outpatient (CLI) | payer BC ==
[~2018-11-19] MED LIST changes: -FENTANYL CITRATE/PF 100MCG/2 ML INJ ONE; -HYOSCYAMINE SULFATE 0.5 MG/ML INJ ONE; -LIDOCAINE HCL 2% LOCAL INJ 5 ML SDV VIAL INJ ONE; -MIDAZOLAM HCL 2 MG/2 ML VIAL ONE; -PROPOFOL IV EMULSION 10 MG/ML 50 ML VIAL ONE
--- NOTE | 2018-11-19 16:16 | Diagnostic Imaging Report ---
Exam: Abdominal film Clinical History: Follow-up kidney stones Comparison: 02/28/2018 DISCUSSION: Interval removal of right internal ureteral stent. Previously described calculus along side the stent is no longer visualized. No suspicious calcifications project over the renal shadows though evaluation is limited by overlying bowel contents. Bowel gas pattern is nonobstructive. Regional skeletal structures are intact. IMPRESSION: Interval removal of right internal ureteral stent. Previously described right ureteral calculi are no longer identified. Previously described 8 mm left upper pole renal calculus is obscured by overlying bowel contents. Signed by: Dr. Seng Bhatia M.D. on 11/19/2018 4:13 PM
== END ==
LOC: RAD 15:05
PROVIDERS: ATTEND Urology
DX: N20.0 Calculus of kidney (principal)
CPT/HCPCS: 74018

== ENCOUNTER 2019-06-04 06:57 | Inpatient (IN) | payer MEDICARE, BC ==
[2019-06-02 12:12] LABS: BASOPHILS % 0.7 % (0.0-1.0); EOSINOPHILS # (AUTO) 0.2 (0.0-0.4); EOSINOPHILS % 3.5 % (0.0-6.0); HEMATOCRIT 37.9 % (38.2-49.6); HEMOGLOBIN 12.8 g/dL (14.0-18.0); LYMPHOCYTES # (AUTO) 1.8 (1.0-3.2); LYMPHOCYTES % 30.7 % (18.0-39.1); MEAN CORPUSCULAR HEMOGLOBIN 29.4 pg (28-32); MEAN CORPUSCULAR HGB CONC 33.8 g/dL (31-35); MEAN CORPUSCULAR VOLUME 86.9 fL (81-99); MONOCYTES # (AUTO) 0.5 (0.2-0.8); MONOCYTES % 8.3 % (4.4-11.3); NEUTROPHILS # (AUTO) 3.3 (2.1-6.9); NEUTROPHILS % 56.6 % (38.7-80.0); PLATELET COUNT 236 x10e3/uL (140-360); RED BLOOD COUNT 4.36 x10e6/uL (4.3-5.7); RED CELL DISTRIBUTION WIDTH 12.7 % (11.7-14.4)
--- NOTE | 2019-06-02 12:37 | Diagnostic Imaging Report ---
EXAMINATION: CHEST 2 VIEWS INDICATION: Pre-operative COMPARISON: Multiple prior chest radiographs, most recently 07/25/2018 FINDINGS: TUBES and LINES: None. LUNGS: The lung volumes are normal. No focal consolidation or pulmonary edema. PLEURA: No pleural effusion or pneumothorax. HEART AND MEDIASTINUM: The cardiomediastinal silhouette is normal in size and contour. BONES AND SOFT TISSUES: Unchanged old fracture deformities of left lateral ribs. UPPER ABDOMEN: No free air under the diaphragm. IMPRESSION: No focal pneumonia or pulmonary edema. Signed by: Key Cintron MD on 06/02/2019 12:33 PM
[~2019-06-04] VITALS: Ht 188 cm; Wt 104.3 kg
[2019-06-04] MEDS ORDERED: CEFTRIAXONE SOD 1 GM/NS 50 ML 50 ML IV ONE (07:12)
[2019-06-04] MEDS ORDERED: GENTAMICIN 80MG/NS 100 ML 200 ML IV ONE (07:12)
[2019-06-04] MEDS: CEFTRIAXONE SOD 1 GM/NS 50 ML 50 ML IV SCH (09:00)
[2019-06-04] MEDS ORDERED: IOPAMIDOL 610MG/1ML 300 MG/ML VIAL IV ONE (09:49)
[2019-06-04] MEDS ORDERED: B&O 60MG R/S 60 MG SUPP PR ONE (09:49)
[2019-06-04] MEDS ORDERED: DIPHENHYDRAMINE HCL 25 MG CAP PO PRN (11:00)
[2019-06-04] MEDS ORDERED: ACETAMINOPHEN/CODEINE 300MG - 30MG TAB PO PRN (11:00)
[2019-06-04] MEDS ORDERED: ONDANSETRON HCL INJ 2MG/ML 2ML 2 MG/ML VIAL IV PRN (11:00)
[2019-06-04] MEDS ORDERED: B&O 60MG R/S 60 MG SUPP PR PRN (11:00)
--- NOTE | 2019-06-04 12:07 | NUR ---
Informed Dr. Joy of new patient.
[2019-06-04 12:20] LABS: BASOPHILS % 0.1 % (0.0-1.0); EOSINOPHILS # (AUTO) 0.1 (0.0-0.4); EOSINOPHILS % 0.8 % (0.0-6.0); HEMATOCRIT 37.3 % (38.2-49.6); HEMOGLOBIN 12.5 g/dL (14.0-18.0); LYMPHOCYTES # (AUTO) 0.9 (1.0-3.2); LYMPHOCYTES % 9.7 % (18.0-39.1); MEAN CORPUSCULAR HEMOGLOBIN 29.3 pg (28-32); MEAN CORPUSCULAR HGB CONC 33.5 g/dL (31-35); MEAN CORPUSCULAR VOLUME 87.4 fL (81-99); MONOCYTES # (AUTO) 0.2 (0.2-0.8); MONOCYTES % 2.5 % (4.4-11.3); NEUTROPHILS % 86.7 % (38.7-80.0); PLATELET COUNT 217 x10e3/uL (140-360); RED BLOOD COUNT 4.27 x10e6/uL (4.3-5.7); RED CELL DISTRIBUTION WIDTH 12.9 % (11.7-14.4)
[2019-06-04 12:38] LABS: ANION GAP 14.7 mmol/L (8-16); BLOOD UREA NITROGEN 12 mg/dL (7-26); BUN/CREATININE RATIO 13 (6-25); CALCIUM 8.7 mg/dL (8.4-10.2); CARBON DIOXIDE 20 mmol/L (22-29); CHLORIDE 108 mmol/L (98-107); CREATININE, SERUM 0.92 mg/dL (0.72-1.25); EST GLOMERULAR FILTRATION RATE > 60 ML/MIN (60-); GLUCOSE 110 mg/dL (74-118); POTASSIUM 4.7 mmol/L (3.5-5.1); SODIUM 138 mmol/L (136-145)
--- NOTE | 2019-06-04 12:43 | NUR ---
RECEIVED REPORT FROM [facility] AWAITING FOR PT TO ARRIVE TO FLOOR
--- NOTE | 2019-06-04 12:57 | NUR ---
RECEIVED PT TO FLOOR [id number]. PT IS IN NO S.S OF DISTRESS DENIES PAIN STATES THE NEED TO DEFECATE ASSISTED PT TO TOILET PT IS ON CBI, CLEAR URINE NOTED ON OTT CATH IV TO THE RIGHT HAND 20 G WITH NS AT 100CCHR SITE IS CLEAN AND DRY WILL CONTINUE TO MONITOR PT AT THIS TIME SIDE [id number] BED WHEELS LOCKED INSTRUCTED TO PULL ON CORD WHEN READY TO GET UP FROM TOILET PT VERBALIZED UNDERSTANDING
[2019-06-04 13:10] VITALS: BP 128/84
[2019-06-04 13:19] VITALS: BP 128/84
[2019-06-04] MEDS: PHENAZOPYRIDINE HCL 100 MG TAB PO SCH ×2 (13:33→17:30)
[2019-06-04] MEDS: D5.45%NS/KCL 20MEQ 1,000 ML IV SCH (13:33)
[2019-06-04 13:34] VITALS: BP 128/84
[2019-06-04] MEDS ORDERED: PNEUMOCOCCAL VACCINE POLYVALENT 23 MCG/0.5 ML VIAL IM SCH ×2 (14:11→17:30)
--- NOTE | 2019-06-04 14:12 | History and Physical ---
CHIEF COMPLAINT: "I have prostate surgery today." HISTORY OF PRESENT ILLNESS: This is a 63-year-old white man, who has a history of benign prostatic hypertrophy, hypertension, and hyperlipidemia. Today, the patient underwent successful TURP performed by his Urologist, Dr. Saúl Real. The patient voiced no complaints at this time. The patient states he has been off aspirin therapy since last Monday, May 27, 2019. REVIEW OF SYSTEMS: GENERAL: Weight is stable. No fever or chills. HEENT: No headaches. No vision changes. CARDIOVASCULAR/RESPIRATORY: No chest pain. No shortness of breath or cough. GI: No nausea, vomiting, diarrhea, or constipation. : The patient has Kenney catheter in place. He is currently receiving continuous bladder irrigation. NEUROMUSCULAR: No limb weakness or numbness. PAST MEDICAL HISTORY: 1. Hypertensive heart disease. 2. Hyperlipidemia. 3. Peripheral artery disease. 4. Venous insufficiency. 5. Benign prostatic hypertrophy. 6. GERD. 7. Chronic bronchitis. PAST SURGICAL HISTORY: 1. Right total knee replacement. 2. Appendectomy. 3. Left lower leg venous ablation. 4. Multiple EGDs. 5. Multiple colonoscopies. FAMILY HISTORY: Father of prostate cancer. Mother and brother of colon cancer. SOCIAL HISTORY: He is , lives with his . He is retired. History of tobacco and alcohol. ALLERGIES: NO KNOWN DRUG ALLERGIES. HOME MEDICATIONS: 1. Aspirin 81 mg daily. 2. Atorvastatin 20 mg at bedtime. 3. Finasteride 5 mg daily. 4. Losartan 100 mg daily. 5. Metoprolol succinate 25 mg daily. 6. Pantoprazole 40 mg daily. 7. Tamsulosin 0.4 mg at bedtime. 8. Spiriva inhaler one puff daily. 9. Multivitamin daily. PHYSICAL EXAMINATION: GENERAL: He is awake, alert, fluent, distress free, pleasant, cooperative with exam. VITAL SIGNS: Bedside, height 6 feet 2 inches, weight is 230 pounds. BMI is 29. INTEGUMENT: Skin is warm and dry. No pallor, jaundice, or diaphoresis. HEENT: Anicteric sclerae. Moist mucous membranes. NECK: Supple. CARDIOVASCULAR: Distant heart sounds. Regular rate and rhythm. LUNGS: No rales, no rhonchi, or wheezes. EXTREMITIES: No edema or deformity. : Kenney catheter in place with clear urine. NEUROMUSCULAR: Intact. No focal deficits appreciated. DIAGNOSES: 1. Status post transurethral resection of the prostate. 2. Benign prostatic hypertrophy. 3. Hypertensive heart disease. 4. Hyperlipidemia. 5. Family history of prostate cancer. PLAN: 1. Follow renal function and electrolytes. 2. Gentle blood pressure control. 3. Hold aspirin. 4. Continue bladder irrigation as per Urology protocol. I spent 40 minutes in the care of this patient. MD SHEREE Fabian/MAC /[id number] MTDD
[2019-06-04 16:20] VITALS: BP 124/78
[2019-06-04] MEDS: PANTOPRAZOLE SOD 40 MG TABEC PO SCH (17:30)
[2019-06-04] MEDS: DOCUSATE SODIUM 100 MG CAP PO SCH (17:30)
[2019-06-04] MEDS ORDERED: PROPOFOL IV EMULSION 10 MG/ML 20 ML VIAL ONE (18:03)
[2019-06-04] MEDS ORDERED: MIDAZOLAM HCL 2 MG/2 ML VIAL ONE (18:03)
[2019-06-04] MEDS ORDERED: ONDANSETRON HCL INJ 2MG/ML 2ML 2 MG/ML VIAL ONE (18:03)
[2019-06-04] MEDS ORDERED: LIDOCAINE HCL 2% LOCAL INJ 5 ML SDV VIAL INJ ONE (18:03)
[2019-06-04] MEDS ORDERED: SEVOFLURANE INHAL SOLN 250 ML PEN BTL ONE (18:03)
[2019-06-04] MEDS ORDERED: FENTANYL CITRATE/PF 100MCG/2 ML INJ ONE (18:03)
[2019-06-04] MEDS ORDERED: MORPHINE SULFATE INJ 10 MG/ML ONE (18:03)
[2019-06-04] MEDS ORDERED: DEXAMETHASONE SOD PHOS INJ 4 MG/ML VIAL ONE (18:03)
--- NOTE | 2019-06-04 18:47 | Operative Report ---
DATE OF PROCEDURE: 06/04/2019 SURGEON: Saúl Real MD PREOPERATIVE DIAGNOSES: 1. History of urolithiasis. 2. Obstructive benign prostatic hyperplasia. POSTOPERATIVE DIAGNOSES: 1. History of urolithiasis. 2. Obstructive benign prostatic hyperplasia. OPERATIONS PERFORMED: 1. Cystourethroscopy with bilateral ureteral catheterization and retrograde ureteropyelography (separately performed for the stone history). 2. Interpretation of retrograde ureteropyelography. 3. Supervision of fluoroscopy, no radiologist present. 4. Cystourethroscopy with transurethral resection of the prostate utilizing the plasma button electrode. ANESTHESIA: General. COMPLICATIONS: None. CLINICAL SUMMARY: Adolfo Rivas is a 63-year-old man with the above preoperative diagnosis. He has had numerous stone procedures including ESWL as well as ureteroscopy as the patient's status post circumcision with a history of urethral stricture disease. He was brought for the above procedures. He is aware of the risks of bleeding, infection, injury to adjacent structures, need for additional procedures and elected to proceed. He is also aware of incontinence and retrograde ejaculation as well as impotence risks. OPERATIVE PROCEDURE IN DETAIL: Informed consent was verified. Adolfo Rivas was properly identified, taken to the operating room, and placed on the cystoscopy table in supine position. Anesthesia was uneventfully begun. The patient was then carefully and gently repositioned in the dorsal lithotomy position with all pressure points well padded. His genitalia were prepared and draped in usual sterile fashion. The cystoscope sheath with the visual obturator in place was atraumatically inserted. The patient's urethra was guided down the relatively unremarkable urethra, which exhibited wide caliber nonobstructing scarring at the fossa navicularis. The remainder of the urethra was unremarkable, sphincteric region was normal. The prostate bed, which was significant for visual obstructing, bilobar benign prostatic hyperplasia with kissing lateral lobes, the distal left lateral lobe at the region of the apex had a significant bulge, there was extending beyond the midline and definitely obstructing the prostatic urethra just proximal to the verumontanum. We entered the patient's bladder and drained it. Panendoscopy revealed fine sand throughout the bladder, but no large stones, no tumors, no suspicious lesions. Trabeculations were noted. An 8-[place] catheter was used to cannulate each ureter and retrograde ureteral pyelograms were performed. Interpretation of retrograde ureteropyelography contrast was instilled in retrograde fashion bilaterally. There were no tumors, no stones, and no diverticula. Unobstructed drainage was observed bilaterally fluoroscopically. The cystoscope was withdrawn and the resectoscope was placed. Plasma button electrode was then utilized to vaporize the prostate from the bladder neck tube, but never passed the verumontanum and down the surgical capsule, pinpoint electrocautery was utilized to achieve hemostasis. The resectoscope was withdrawn Kenney catheter was placed, it was placed in continuous irrigation, it is irrigated to and fro to ensure work properly. A belladonna and opium suppository were placed revealing a 35 to 40 g prostate, smooth and non-fluctuant without any nodules, and the patient was uneventfully reversed from anesthesia and taken to recovery room in stable condition. There were no complications to the procedure. He tolerated the procedure well. We will proceed with routine postoperative care and ongoing urological followup. MD BERNARDO Galan/MAC /[id number]
--- NOTE | 2019-06-04 19:17 | NUR ---
Bedside report and walking rounds complete. Pt resting in bed and in no apparent distress. Pt on CBI. All safety measures ensured.
[2019-06-04 20:00] VITALS: BP 139/81
[2019-06-04 20:11] VITALS: BP 139/81
[2019-06-04] MEDS: TAMSULOSIN HCL 0.4 MG CAP PO SCH (20:26)
[2019-06-04] MEDS: ATORVASTATIN 20 MG TAB PO SCH (20:27)
[2019-06-05] VITALS (9 sets, daily range): BP systolic 122–150; BP diastolic 73–81
[2019-06-05] MEDS: D5.45%NS/KCL 20MEQ 1,000 ML IV SCH ×3 (00:39→19:31)
[2019-06-05 05:57] LABS: BASOPHILS % 0.2 % (0.0-1.0); EOSINOPHILS % 0.4 % (0.0-6.0); HEMATOCRIT 35.9 % (38.2-49.6); HEMOGLOBIN 12.2 g/dL (14.0-18.0); LYMPHOCYTES # (AUTO) 1.6 (1.0-3.2); LYMPHOCYTES % 15.5 % (18.0-39.1); MEAN CORPUSCULAR HEMOGLOBIN 29.2 pg (28-32); MEAN CORPUSCULAR VOLUME 85.9 fL (81-99); MONOCYTES # (AUTO) 0.7 (0.2-0.8); MONOCYTES % 7.1 % (4.4-11.3); NEUTROPHILS # (AUTO) 7.8 (2.1-6.9); NEUTROPHILS % 76.5 % (38.7-80.0); PLATELET COUNT 222 x10e3/uL (140-360); RED BLOOD COUNT 4.18 x10e6/uL (4.3-5.7); RED CELL DISTRIBUTION WIDTH 12.9 % (11.7-14.4)
[2019-06-05 06:21] LABS: ALANINE AMINOTRANSFERASE 17 IU/L (0-55); ALBUMIN 3.2 g/dL (3.5-5.0); ALBUMIN/GLOBULIN RATIO 1.1 (0.8-2.0); ALKALINE PHOSPHATASE 58 IU/L (40-150); ANION GAP 15.3 mmol/L (8-16); BLOOD UREA NITROGEN 13 mg/dL (7-26); BUN/CREATININE RATIO 15 (6-25); CALCIUM 8.8 mg/dL (8.4-10.2); CARBON DIOXIDE 20 mmol/L (22-29); CHLORIDE 108 mmol/L (98-107); CREATININE, SERUM 0.84 mg/dL (0.72-1.25); EST GLOMERULAR FILTRATION RATE > 60 ML/MIN (60-); GLUCOSE 118 mg/dL (74-118); POTASSIUM 4.3 mmol/L (3.5-5.1); SODIUM 139 mmol/L (136-145)
[2019-06-05] MEDS: METOPROLOL SUCCINATE 25 MG TAB XL PO SCH (07:45)
[2019-06-05] MEDS: PHENAZOPYRIDINE HCL 100 MG TAB PO SCH ×3 (07:45→17:06)
[2019-06-05] MEDS: PANTOPRAZOLE SOD 40 MG TABEC PO SCH ×2 (07:45→17:06)
[2019-06-05] MEDS: LOSARTAN POTASSIUM 25 MG TAB PO SCH (07:45)
[2019-06-05] MEDS: FINASTERIDE 5 MG TAB PO SCH (07:45)
[2019-06-05] MEDS: DOCUSATE SODIUM 100 MG CAP PO SCH ×2 (07:45→17:06)
[2019-06-05] MEDS: CEFTRIAXONE SOD 1 GM/NS 50 ML 50 ML IV SCH (07:45)
[2019-06-05] MEDS: TIOTROPIUM 18 MCG INH POWDER INH SCH (11:18)
--- NOTE | 2019-06-05 19:27 | NUR ---
Patient 101.2 F present upon assessment. Denies pain. CBI in place and draining orange tinged urine. Paged Dr. Joy for orders.
[2019-06-05] MEDS ORDERED: ACETAMINOPHEN 325 MG TAB PO ONE (20:15)
[2019-06-05] MEDS: ATORVASTATIN 20 MG TAB PO SCH (20:43)
[2019-06-05] MEDS: TAMSULOSIN HCL 0.4 MG CAP PO SCH (20:43)
[2019-06-06] VITALS: BP 129/83
[2019-06-06] MEDS: D5.45%NS/KCL 20MEQ 1,000 ML IV SCH ×2 (02:54→14:50)
[2019-06-06 04:00] VITALS: BP 135/87
[2019-06-06 05:58] LABS: BASOPHILS # (AUTO) 0.1 (0.0-0.1); BASOPHILS % 0.6 % (0.0-1.0); EOSINOPHILS # (AUTO) 0.3 (0.0-0.4); EOSINOPHILS % 3.6 % (0.0-6.0); HEMOGLOBIN 13.4 g/dL (14.0-18.0); LYMPHOCYTES # (AUTO) 2.3 (1.0-3.2); LYMPHOCYTES % 25.4 % (18.0-39.1); MEAN CORPUSCULAR HEMOGLOBIN 29.2 pg (28-32); MEAN CORPUSCULAR HGB CONC 33.5 g/dL (31-35); MEAN CORPUSCULAR VOLUME 87.1 fL (81-99); MONOCYTES # (AUTO) 0.7 (0.2-0.8); MONOCYTES % 7.2 % (4.4-11.3); NEUTROPHILS # (AUTO) 5.7 (2.1-6.9); NEUTROPHILS % 62.9 % (38.7-80.0); PLATELET COUNT 215 x10e3/uL (140-360); RED BLOOD COUNT 4.59 x10e6/uL (4.3-5.7); RED CELL DISTRIBUTION WIDTH 13.2 % (11.7-14.4)
[2019-06-06 06:19] LABS: ANION GAP 14.1 mmol/L (8-16); BLOOD UREA NITROGEN 13 mg/dL (7-26); BUN/CREATININE RATIO 14 (6-25); CARBON DIOXIDE 23 mmol/L (22-29); CHLORIDE 108 mmol/L (98-107); CREATININE, SERUM 0.94 mg/dL (0.72-1.25); EST GLOMERULAR FILTRATION RATE > 60 ML/MIN (60-); GLUCOSE 95 mg/dL (74-118); POTASSIUM 4.1 mmol/L (3.5-5.1); SODIUM 141 mmol/L (136-145)
--- NOTE | 2019-06-06 07:08 | Diagnostic Imaging Report ---
Examination: Single AP view of the chest. COMPARISON: 06/02/2019 INDICATION: Fever, pneumonia DISCUSSION: The lungs are well-inflated and without focal consolidation, pleural effusion, or pneumothorax. Stable cardiomediastinal contour with tortuosity and atherosclerotic calcification of the thoracic aorta. No pulmonary edema. No acute osseous abnormality. Healed left clavicular and multiple healed left-sided rib fracture deformities. IMPRESSION: No consolidative pneumonia. Signed by: Dr. Seng Bhatia M.D. on 06/06/2019 7:05 AM
--- NOTE | 2019-06-06 07:10 | NUR ---
Received patient mid fowlers position, side rails upx2, call light within reach. AAOx4 to time, person, place, situation. Respirations even and unlabored. On continuous irrigation. Instructed to use call light for assistance. Voiced understanding.
[2019-06-06] MEDS: TIOTROPIUM 18 MCG INH POWDER INH SCH (09:00)
[2019-06-06] MEDS: CEFTRIAXONE SOD 1 GM/NS 50 ML 50 ML IV SCH (09:19)
[2019-06-06] MEDS: DOCUSATE SODIUM 100 MG CAP PO SCH ×2 (09:19→15:46)
[2019-06-06] MEDS: LOSARTAN POTASSIUM 25 MG TAB PO SCH (09:19)
[2019-06-06] MEDS: PANTOPRAZOLE SOD 40 MG TABEC PO SCH ×2 (09:19→15:46)
[2019-06-06] MEDS: METOPROLOL SUCCINATE 25 MG TAB XL PO SCH (09:19)
[2019-06-06] MEDS: PHENAZOPYRIDINE HCL 100 MG TAB PO SCH ×3 (09:19→15:46)
[2019-06-06] MEDS: FINASTERIDE 5 MG TAB PO SCH (09:19)
[2019-06-06 09:30] VITALS: BP 158/68
--- NOTE | 2019-06-06 10:35 | Discharge Summary ---
ADMIT DIAGNOSES: 1. Obstructive benign prostatic hyperplasia. 2. Hypertensive heart disease. DISCHARGE DIAGNOSES: 1. Status post transurethral resection of the prostate. 2. Obstructive benign prostatic hyperplasia. 3. Hypertensive heart disease. HOSPITAL COURSE: This is a 63-year-old white man, who has known history of BPH, hypertension. The patient was admitted to [facility] with diagnosis of obstructive benign prostatic hyperplasia. During this hospitalization, the patient was seen by urologist. He underwent successful transurethral resection of the prostate using plasma button electrode. The patient tolerated the surgery quite well. The patient stay in the hospital two nights because he received continuous bladder irrigation. Prior to discharge, the patient's urine was clear. He is also tolerating regular diet on discharge. LABS ON DISCHARGE: On day of discharge, the patient's hemoglobin was 13.4 g. The patient's white blood cell count was 9000 with 62% segmented neutrophils. The patient's BUN and creatinine on day of discharge, 13 and 0.94 respectively. DISCHARGE MEDICATIONS: 1. Tamsulosin 0.4 mg at bedtime. 2. Atorvastatin 20 mg at bedtime. 3. Pantoprazole 40 mg b.i.d. 4. Pyridium 100 mg b.i.d. for 30 days. 5. Colace 100 mg b.i.d. 6. Metoprolol succinate 25 mg daily. 7. Losartan 100 mg daily. 8. Finasteride 5 mg daily. 9. Spiriva inhaler one puff daily. 10. Tylenol No. 3 one pill every 4 hours p.r.n. intense pain. FOLLOWUP INSTRUCTIONS: The patient was instructed to follow up with Dr. Joy, his primary care physician within 2-[address] Real within a week. I did not inform the patient that he may not need to continue tamsulosin since he underwent TURP, but this decision will be left to his urologist. MD SHEREE Fabian/MAC /[id number]
[2019-06-06 10:38] VITALS: BP 158/68
[2019-06-06 12:13] VITALS: BP 152/85
--- NOTE | 2019-06-06 14:58 | NUR ---
24F catheter discontinued as ordered. Tolerated well. Patient due to void. Patient aware of doctor's orders for serial urine
[2019-06-06] MEDS ORDERED: TYLENOL WITH C1 EACH PO (15:12)
[2019-06-06] MEDS ORDERED: LEVAQUIN500 MG PO (15:12)
--- NOTE | 2019-06-06 15:30 | NUR ---
Patient voided orange tinged urine without distress. Will continue to collect serial urine
[2019-06-06 16:05] VITALS: BP 152/93
--- NOTE | 2019-06-06 16:30 | NUR ---
Ambulating in hallway. No s/s of acute distress noted.
--- NOTE | 2019-06-06 17:40 | NUR ---
Dr.Hampel Beltrán aware 4th serial urine clear. Per Dr.Hampel Beltrán "you don't have to collect 5th one. Patient cleared to go." Paged to notify of patient's status.
[2019-06-06] MEDS ORDERED: ACETAMINOPHEN 325 MG TAB PO ONE (18:00)
--- NOTE | 2019-06-06 18:00 | NUR ---
Dr. Joy aware of T99.8. Per give Tylenol once and okay to discharge.
--- NOTE | 2019-06-06 18:20 | NUR ---
Right hand IV discontinued. No signs of infiltration noted. 2x2 gauze and tape placed. Taken via wheelchair by PCT to personal car. Accompanied by . AAOX4 to time, person,place, situation. Respirations even and unlabored. Denies pain. Discharge instructions, rx, and all personal belongings taken with patient.
== END 2019-06-06 18:20 | disposition home or self-care (01) | DRG 714 ==
LOC: OR 06:57 → PACU V 10:57 → MED/SURG 12:45
PROVIDERS: ADMIT Internal Medicine; ATTEND Internal Medicine
PROC: 0V508ZZ Destruction of Prostate, Via Natural or Artificial Opening Endoscopic (ICD-10-PCS; principal; 2019-06-04 09:00)
PROC: BT141ZZ Fluoroscopy of Kidneys, Ureters and Bladder using Low Osmolar Contrast (ICD-10-PCS; 2019-06-04 09:00)
PROC: 3E0234Z Introduction of Serum, Toxoid and Vaccine into Muscle, Percutaneous Approach (ICD-10-PCS; 2019-06-04 09:00)
DX: N40.0 Benign prostatic hyperplasia without lower urinary tract symptoms (principal); I11.9 Hypertensive heart disease without heart failure; E78.5 Hyperlipidemia, unspecified; I73.9 Peripheral vascular disease, unspecified; I87.2 Venous insufficiency (chronic) (peripheral); K21.9 Gastro-esophageal reflux disease without esophagitis; J42 Unspecified chronic bronchitis; Z23 Encounter for immunization; Z87.891 Personal history of nicotine dependence; Z87.442 Personal history of urinary calculi; Z79.82 Long term (current) use of aspirin; Z80.42 Family history of malignant neoplasm of prostate
CPT/HCPCS: 36415; 71045; 71046; 74420; 80048; 80053; 82948; 83735; 85025; 90732; 93005; J0696; J1100; J1580; J2001; J2250; J2270; J2405; J3010

== ENCOUNTER 2019-09-03 09:26 | Observation (INO) | payer BC, MEDICARE ==
[~2019-09-03] VITALS: Ht 188 cm; Wt 104.3 kg
[~2019-09-03 09:26] MED LIST changes: +LEVAQUIN500 MG PO
[2019-09-03] MEDS ORDERED: DIATRIZOATE MEGL/DIATRIZOA SOD 30 ML BTL PO ONE (09:45)
--- NOTE | 2019-09-03 10:45 | NUR ---
PT TO BE ADMITTED, PT AND FAMILY AWARE OF POC, VITAL SIGNS STABLE, PT VOICES NO COMPLAINTS AT THIS TIME.
--- NOTE | 2019-09-03 10:57 | Diagnostic Imaging Report ---
TECHNIQUE: CT of the chest WITHOUT intravenous contrast. Dose modulation, iterative reconstruction, and/or weight-based adjustment of the mA/kV was utilized to reduce the radiation dose to as low as reasonably achievable. INDICATION: 63-year-old man with throat concerns. COMPARISON: Chest radiograph 06/06/2019. FINDINGS: ABSENCE OF INTRAVENOUS CONTRAST DECREASES SENSITIVITY FOR DETECTION OF FOCAL LESIONS AND VASCULAR PATHOLOGY. LINES/TUBES: None. LUNGS AND AIRWAYS: Central airways are patent. 5 mm noncalcified nodule in the left lower lobe (axial lung window series image 71). Subcentimeter calcified granuloma in the right middle lobe. Linear atelectasis and/or scarring in the left lower lobe also contains a subcentimeter calcified granuloma. PLEURA: The pleural spaces are clear. HEART AND MEDIASTINUM: The visualized thyroid gland is normal. No significant mediastinal, hilar, or axillary lymphadenopathy. Calcified subcentimeter mediastinal and right hilar lymph nodes, likely related to prior granulomatous disease. The heart and pericardium are within normal limits. Atherosclerotic coronary artery calcifications. Apparent impacted food debris within the small hiatal hernia. Patulous esophagus contains air and fluid. Oral contrast is seen within the stomach. SOFT TISSUES AND BONES: Degenerative changes of the visualized spine. Chronic deformities of left-sided ribs. Soft tissues are unremarkable. UPPER ABDOMEN: Left renal cysts measure up to 1.5 x 2.4 cm. IMPRESSION: Apparent impacted food debris in the small hiatal hernia associated with patulous and fluid-containing esophagus. These findings may be seen in the setting of partial obstruction from the impacted food debris. 5 mm pulmonary nodule in the left lower lobe. If patient is at high risk for lung neoplasm, then optional follow-up chest CT may be obtained in 12 months for reassessment. Otherwise, no routine follow-up imaging recommended. Signed by: Luma Arrington MD on 09/03/2019 10:54 AM
--- NOTE | 2019-09-03 11:04 | NUR ---
[facility] CALLED FOR TRANSPORT 30MIN ETA
[2019-09-03 12:04] VITALS: BP 167/99
--- NOTE | 2019-09-03 12:16 | NUR ---
Received patient from [facility], a/ox3, PMH significant for esophageal stricture and GERD, patient was having dinner and a piece is still stuck in his throat at this time, he is currently NPO, Dr. Robbins for GI is consulted and has been notified by [facility]. No c/o pains, call light within reach, will monitor.
[2019-09-03 12:30] VITALS: BP 155/85
--- NOTE | 2019-09-03 14:04 | NUR ---
Call to Dr. Joy for orders in patient's records given NPO status
[2019-09-03] MEDS ORDERED: DEXTROSE 5%/0.45% SOD CHL 1,000 ML IV ONE (14:15)
--- NOTE | 2019-09-03 14:15 | NUR ---
Call back from Dr. Joy and orders for D51/2 at 100cc/hr and protonix IV
[2019-09-03] MEDS ORDERED: DEXTROSE 5%/0.45% SOD CHL 1,000 ML IV SCH (14:30)
[2019-09-03] MEDS ORDERED: KETOROLAC TROMETHAMINE 30 MG/ML VIAL ONE (16:33)
[2019-09-03] MEDS ORDERED: ACETAMINOPHEN 1000 MG/100 ML 100 ML IV ONE (16:33)
[2019-09-03 17:06] VITALS: BP 126/78
--- NOTE | 2019-09-03 17:27 | NUR ---
Patient returned from having procedure, full liquid diet ordered, attending saw patient and will be discharged today if tolerated dinner. No distress at this point, will monitor, call light within reach,
--- NOTE | 2019-09-03 17:52 | History and Physical ---
History And Physical And Discharge Summary ADMITTING DIAGNOSES: 1. Esophageal food bolus obstruction. 2. Gastroesophageal reflux disease. 3. Hypertension. HOSPITAL COURSE/HISTORY OF PRESENT ILLNESS: This is a 63-year-old white man, who presented to [facility] with a 1-day history of difficulty swallowing. The patient states that one day prior to admission, he was eating pork chop and potatoes. He felt as though food was lodged in his esophagus. The patient thought the food would pass on its own. The patient presented to the emergency room today because the sensation of food obstruction in the esophagus was not resolving. The patient's corporate accountant namely Dr. Jay Robbins performed EGD on the patient, which revealed a food bolus in the distal esophagus. The food bolus was actually pushed into the stomach. The patient did not undergo esophageal dilatation because the distal esophagus appeared to be very friable. The patient's condition on discharge is stable. He was tolerating a full liquid diet on discharge. PAST MEDICAL HISTORY: 1. Hypertensive heart disease. 2. Benign prostatic hypertrophy. 3. GERD. 4. Hyperlipidemia. 5. Peripheral artery disease. 6. Chronic bronchitis. 7. Venous insufficiency. ALLERGIES: NO KNOWN DRUG ALLERGIES. HOME MEDICATIONS: 1. Tamsulosin 0.4 mg at bedtime. 2. Atorvastatin 20 mg at bedtime. 3. Pantoprazole 40 mg b.i.d. 4. Metoprolol succinate 25 mg daily. 5. Losartan 100 mg daily. 6. Finasteride 5 mg daily. 7. Spiriva inhaler one puff daily. SURGICAL HISTORY: 1. TURP in May of 2019. 2. Right total knee replacement. 3. Appendectomy. 4. Left lower leg venous ablation. 5. Multiple EGDs. 6. Multiple colonoscopies. FAMILY HISTORY: Father of prostate cancer. Mother and brother of colon cancer. SOCIAL HISTORY: He is , lives with his . He is retired. No history of tobacco or alcohol use. REVIEW OF SYSTEMS: GENERAL: Weight is stable. No fever or chills. HEENT: No headaches. No vision changes. CARDIOVASCULAR/RESPIRATORY: The patient does complain of retrosternal discomfort from the esophageal food bolus. No shortness of breath or cough. GI: Complains of difficulty swallowing from the obstructed food bolus. No nausea or vomiting. No diarrhea. No constipation. : Denies any BPH or UTI symptoms. NEUROMUSCULAR: No limb weakness or numbness. PHYSICAL EXAMINATION: GENERAL: He is awake, alert, and fluent. His is at bedside. VITAL SIGNS: Height 6 feet 2 inches, weight is 230 pounds, BMI 29. Blood pressure is 126/78, pulse 76, respiratory rate is 18, oxygen saturation 94% on room air, and temperature 97.0. INTEGUMENT: Skin is warm and dry. No pallor, jaundice or diaphoresis. HEENT: Anicteric sclerae. Moist mucous membranes. NECK: Supple. CARDIOVASCULAR: Regular rate and rhythm with an S4 gallop. LUNGS: No rales, no rhonchi, no wheezes. ABDOMEN: Benign. EXTREMITIES: No edema or deformity. NEUROLOGIC: Intact. DISCHARGE DIAGNOSES: 1. Status post EGD with food bolus removal. 2. Esophageal stricture. 3. Gastroesophageal reflux disease. 4. Hypertensive heart disease. PLAN: 1. Discharge home today if tolerating a full liquid diet. 2. The patient will follow up with his corporate accountant next week, namely Dr. Jay Robbins. 3. The patient will return on an outpatient basis and will likely undergo elective EGD with esophageal dilatation. 4. The patient will continue Protonix 40 mg twice a day until further notice. 5. The patient instructed to avoid meat, potatoes and rice until further notice. 6. Recommend the patient to drink copious fluids when eating. 7. The patient instructed to take small bites when eating. I spent 45 minutes in the care of the patient. MD SHEREE Fabian/MAC /[id number]
--- NOTE | 2019-09-03 18:05 | NUR ---
Patient cleared for discharge by Dr. Joy, provided with discharge documentation, patient to f/u with Dr. Robbins for out patient dilatation and has been provided with instructions. Education on full liquid diet and soft foods provided. IV line removed, cath tip in place, dressing applied.
[2019-09-03] MEDS ORDERED: DEXAMETHASONE SOD PHOS INJ 4 MG/ML VIAL ONE (18:42)
[2019-09-03] MEDS ORDERED: SUCCINYLCHOLINE 200 MG/10 ML SYR ONE (18:42)
[2019-09-03] MEDS ORDERED: LIDOCAINE HCL 2% LOCAL INJ 5 ML SDV VIAL INJ ONE (18:42)
[2019-09-03] MEDS ORDERED: PROPOFOL IV EMULSION 10 MG/ML 50 ML VIAL ONE (18:42)
[2019-09-03] MEDS ORDERED: ONDANSETRON HCL INJ 2MG/ML 2ML 2 MG/ML VIAL ONE (18:42)
[2019-09-03] MEDS ORDERED: SEVOFLURANE INHAL SOLN 250 ML PEN BTL ONE (18:42)
[2019-09-03] MEDS ORDERED: GLUCAGON FOR INJ 1 MG VIAL ONE (18:42)
[2019-09-03] MEDS ORDERED: FENTANYL CITRATE/PF 100MCG/2 ML INJ ONE (19:20)
[2019-09-03] MEDS ORDERED: MIDAZOLAM HCL 2 MG/2 ML VIAL ONE (19:20)
--- NOTE | 2019-09-03 19:42 | Operative Report ---
DATE OF PROCEDURE: 09/03/2019 SURGEON: Jay Robbins MD PROCEDURE: EGD with foreign body removal. INDICATIONS FOR PROCEDURE: Esophageal obstruction. MEDICATIONS: The patient was done under general endotracheal anesthesia, please see anesthesiologist's note. DESCRIPTION OF PROCEDURE: After induction of adequate general endotracheal anesthesia with the patient in the left lateral decubitus position, a flexible fiberoptic Olympus gastroscope was introduced into the esophagus under direct visualization without any difficulty. A large meat bolus was noted to be impacted in the distal esophagus. It was partially removed per polypectomy snare and the rest was pushed into the stomach. There was a tight friable stricture noted at the GE junction, which was traversed with ease with the scope. Mucosa overlying the antrum and the body revealed some patchy areas of erythema. The pylorus was intubated with ease and the scope was advanced all the way to the second portion of the duodenum. The scope was then withdrawn slowly. Mucosa overlying the proximal second portion and duodenal bulb appeared to be within normal limits. The scope was then withdrawn back into the stomach and retroflexed and some of the debris from the meat bolus was noted in the fundus. The scope was then straightened out, it was subsequently withdrawn. The patient tolerated the procedure well. IMPRESSION: 1. Meat bolus impacted in distal esophagus, partially removed per polypectomy snare and rest was pushed into the stomach. 2. Esophageal stricture at GE junction, friable. 3. Gastritis. PLAN: Initiate full liquid diet. Start Protonix 40 mg one p.o. before meals b.i.d. The patient will need an EGD with esophageal dilatation electively one week after discharge. Jay Robbins MD [facility] [place]/MAC /[id number] cc: Zak Joy MD
[2019-09-03] MEDS ORDERED: PANTOPRAZOLE 40 MG 10ML VIAL IV SCH (21:00)
== END 2019-09-03 18:20 | disposition home or self-care (01) ==
LOC: FSED 09:26 → ERHOLD 10:59 → MED/SURG 12:06
PROVIDERS: ADMIT Internal Medicine; ATTEND Internal Medicine
DX: T17.228A Food in pharynx causing other injury, initial encounter (principal); R09.89 Other specified symptoms and signs involving the circulatory and respiratory systems; K29.70 Gastritis, unspecified, without bleeding; K22.2 Esophageal obstruction; I11.9 Hypertensive heart disease without heart failure; K21.9 Gastro-esophageal reflux disease without esophagitis; E78.5 Hyperlipidemia, unspecified; I87.2 Venous insufficiency (chronic) (peripheral); J42 Unspecified chronic bronchitis; N40.0 Benign prostatic hyperplasia without lower urinary tract symptoms
CPT/HCPCS: 43247; 43499; 71250; 80053; 85025; 85610; 99284; C9113; G0378; J0131; J1100; J1610; J1885; J2001; J2250; J2405; J2704; J3010; 43239

== ENCOUNTER → 2019-09-24 | Outpatient (CLI) | payer BC ==
[~2019-09-24] MED LIST changes: +BENEFIBER1 EAC1 PO; +CULTURELLE1 EACH PO
--- NOTE | 2019-09-24 17:16 | Diagnostic Imaging Report ---
Exam: KUB - 2 views Indication: Renal calculi Comparison: KUB of 11/19/2018 Findings: Left lower pole 2 mm renal calculus. No other definite radiographically apparent renal calculi. Nonobstructive bowel gas pattern. No free air. Minimally visualized lung bases are clear. Mild degenerative changes of both hip joints. Impression: Left lower pole 2 mm renal calculus. Signed by: Key Cintron MD on 09/24/2019 5:12 PM
== END ==
LOC: RAD 16:44
PROVIDERS: ATTEND Urology
DX: N20.0 Calculus of kidney (principal)
CPT/HCPCS: 74018

== ENCOUNTER → 2019-09-30 | Day surgery (SDC) | payer BC ==
[~2019-09-30] MED LIST changes: +FENTANYL CITRATE/PF 100MCG/2 ML INJ ONE; +MIDAZOLAM HCL 2 MG/2 ML VIAL ONE; +PROPOFOL IV EMULSION 10 MG/ML 20 ML VIAL ONE
[2019-09-30 15:05] VITALS: BP 133/84
--- NOTE | 2019-09-30 16:10 | Operative Report ---
DATE OF PROCEDURE: 09/30/2019 SURGEON: Jay Robbins MD PROCEDURE: EGD with esophageal dilatation and biopsies. INDICATIONS FOR EGD: Dysphagia to solids, heartburn. MEDICATIONS: The patient was done under MAC, please see anesthesiologist's note. PROCEDURE IN DETAIL: With the patient in left lateral decubitus position, a flexible fiberoptic Olympus gastroscope was introduced into the esophagus under direct visualization without any difficulty. There was some transient concentric rings noted on the way down compatible with eosinophilic esophagitis and biopsies were obtained. A mild stricture was noted at the GE junction that was dilated to size 52-[place] Springer. The scope was then advanced with ease into the stomach traversing a small sliding hiatal hernia. Mucosa overlying the antrum and the body revealed some patchy erythema and low-grade to moderate edema, and biopsies were obtained and sent to stain for H. pylori. The pylorus was of normal contour and shape. It was intubated with ease and the scope was advanced all the way to the second portion of the duodenum. The scope was then withdrawn slowly. Mucosa overlying the proximal second portion and duodenal bulb appeared to be within normal limits. The scope was then withdrawn back into the stomach and retroflexed, mucosa overlying the fundus and the cardia appeared to be within normal limits. The scope was then straightened out, it was subsequently withdrawn, and the patient tolerated the procedure well. IMPRESSION: 1. Rule out eosinophilic esophagitis. 2. Mild stricture GE junction, dilated to size 52-[place] Springer. 3. Small sliding hiatal hernia. 4. Gastritis, biopsied, biopsies sent to stain for Helicobacter pylori. PLAN: Follow up histology. Continue Protonix 40 mg 1 p.o. before meals b.i.d. Jay Robbins MD [facility] [place]/MODL /[id number] cc: Zak Joy MD
== END | disposition home or self-care (01) ==
LOC: OR 12:16
PROVIDERS: ATTEND Internal Medicine Gastroenterology
DX: K22.2 Esophageal obstruction (principal); K29.70 Gastritis, unspecified, without bleeding; K44.9 Diaphragmatic hernia without obstruction or gangrene; K20.8 Other esophagitis; K22.8 Other specified diseases of esophagus; Z86.010 Personal history of colon polyps; Z71.3 Dietary counseling and surveillance; J44.9 Chronic obstructive pulmonary disease, unspecified; I10 Essential (primary) hypertension; E78.00 Pure hypercholesterolemia, unspecified; Z01.810 Encounter for preprocedural cardiovascular examination; Z79.82 Long term (current) use of aspirin; Z87.891 Personal history of nicotine dependence; Z80.0 Family history of malignant neoplasm of digestive organs
CPT/HCPCS: 43239; 43450; 93005; J2250; J2704; J3010

== ENCOUNTER → 2020-10-14 | Day surgery (SDC) | payer BC ==
[2020-10-11 10:41] LABS: BASOPHILS # (AUTO) 0.1 (0.0-0.1); BASOPHILS % 0.8 % (0.0-1.0); EOSINOPHILS # (AUTO) 0.2 (0.0-0.4); EOSINOPHILS % 2.4 % (0.0-6.0); HEMATOCRIT 41.2 % (38.2-49.6); LYMPHOCYTES # (AUTO) 1.3 (1.0-3.2); LYMPHOCYTES % 19.5 % (18.0-39.1); MEAN CORPUSCULAR HEMOGLOBIN 29.4 pg (28-32); MEAN CORPUSCULAR VOLUME 86.4 fL (81-99); MONOCYTES # (AUTO) 0.4 (0.2-0.8); MONOCYTES % 6.5 % (4.4-11.3); NEUTROPHILS # (AUTO) 4.7 (2.1-6.9); NEUTROPHILS % 70.6 % (38.7-80.0); PLATELET COUNT 235 x10e3/uL (140-360); RED BLOOD COUNT 4.77 x10e6/uL (4.3-5.7); RED CELL DISTRIBUTION WIDTH 12.6 % (11.7-14.4)
[~2020-10-14] MED LIST changes: +GLUCAGON FOR INJ 1 MG VIAL ONE; +HYOSCYAMINE 0.125 MG TAB ONE; +HYOSCYAMINE SULFATE 0.5 MG/ML INJ ONE; +LIDOCAINE HCL 2% LOCAL INJ 5 ML SDV VIAL INJ ONE; +SINEMET 25-1001 EACH PO; +vit d PO
[2020-10-14 11:20] VITALS: BP 116/81
== END | disposition home or self-care (01) ==
LOC: OR 08:04
PROVIDERS: ATTEND Internal Medicine Gastroenterology
DX: Z12.11 Encounter for screening for malignant neoplasm of colon (principal); D12.2 Benign neoplasm of ascending colon; K64.8 Other hemorrhoids; K29.70 Gastritis, unspecified, without bleeding; K21.9 Gastro-esophageal reflux disease without esophagitis; N20.0 Calculus of kidney; J44.9 Chronic obstructive pulmonary disease, unspecified; I10 Essential (primary) hypertension; E78.5 Hyperlipidemia, unspecified; Z01.810 Encounter for preprocedural cardiovascular examination; Z01.812 Encounter for preprocedural laboratory examination; Z20.828 Contact with and (suspected) exposure to other viral communicable diseases; Z79.82 Long term (current) use of aspirin; Z80.0 Family history of malignant neoplasm of digestive organs
CPT/HCPCS: 36415; 45385; 85025; 93005; J1610; J1980; J2001; J2250; J2704; J3010; U0002; 45378

== ENCOUNTER 2021-04-11 19:22 | Observation (INO) | payer OTHER ==
[~2021-04-11] VITALS: Ht 188 cm; Wt 107.0 kg
[2021-04-11] MEDS: SODIUM CHLORIDE 0.9% 1000ML 1,000 ML IV SCH (00:30)
[~2021-04-11 19:22] MED LIST changes: -FENTANYL CITRATE/PF 100MCG/2 ML INJ ONE; -GLUCAGON FOR INJ 1 MG VIAL ONE; -HYOSCYAMINE 0.125 MG TAB ONE; -HYOSCYAMINE SULFATE 0.5 MG/ML INJ ONE; -LIDOCAINE HCL 2% LOCAL INJ 5 ML SDV VIAL INJ ONE; -MIDAZOLAM HCL 2 MG/2 ML VIAL ONE; -PROPOFOL IV EMULSION 10 MG/ML 20 ML VIAL ONE
[2021-04-11] MEDS ORDERED: DIATRIZOATE MEGL/DIATRIZOA SOD 30 ML BTL PO ONE (20:08)
[2021-04-11] MEDS ORDERED: ONDANSETRON HCL INJ 2MG/ML 2ML 2 MG/ML VIAL IV STA (21:09)
[2021-04-11] MEDS ORDERED: MORPHINE SULFATE INJ 4 MG/ML INJ 1ML IV ONE ×2 (21:15)
[2021-04-11] MEDS ORDERED: GLUCAGON FOR INJ 1 MG VIAL SC ONE (22:00)
[2021-04-11] MEDS ORDERED: GLUCAGON FOR INJ 1 MG VIAL ONE (22:01)
[2021-04-11] MEDS ORDERED: ONDANSETRON HCL INJ 2MG/ML 2ML 2 MG/ML VIAL IV PRN (22:30)
[2021-04-11] MEDS ORDERED: ONDANSETRON HCL INJ 2MG/ML 2ML 2 MG/ML VIAL ONE (23:23)
[2021-04-11] MEDS ORDERED: MORPHINE SULFATE INJ 4 MG/ML INJ 1ML ONE (23:24)
[2021-04-12] VITALS (7 sets, daily range): BP systolic 14–145; BP diastolic 71–91
[2021-04-12] MEDS: SODIUM CHLORIDE 0.9% 1000ML 1,000 ML IV SCH (00:30)
[2021-04-12] MEDS ORDERED: GLUCAGON FOR INJ 1 MG VIAL ONE (01:59)
[2021-04-12] MEDS ORDERED: PANTOPRAZOLE 40 MG 10ML VIAL IV STA (02:39)
[2021-04-12] MEDS ORDERED: PANTOPRAZOL 40MG/SOD CHL 0.9% 250 ML IV SCH (02:45)
[2021-04-12] MEDS ORDERED: SODIUM CHLORIDE 0.9% 50ML 50 ML ONE (03:44)
[2021-04-12 09:31] LABS: BASOPHILS % 0.2 % (0.0-1.0); HEMOGLOBIN 13.3 g/dL (14.0-18.0); LYMPHOCYTES # (AUTO) 0.8 (1.0-3.2); LYMPHOCYTES % 9.7 % (18.0-39.1); MEAN CORPUSCULAR HEMOGLOBIN 30.7 pg (28-32); MEAN CORPUSCULAR VOLUME 87.8 fL (81-99); MONOCYTES % 0.4 % (4.4-11.3); NEUTROPHILS # (AUTO) 7.6 (2.1-6.9); NEUTROPHILS % 89.5 % (38.7-80.0); PLATELET COUNT 192 x10e3/uL (140-360); RED BLOOD COUNT 4.33 x10e6/uL (4.3-5.7); RED CELL DISTRIBUTION WIDTH 13.1 % (11.7-14.4)
[2021-04-12 10:39] LABS: ALANINE AMINOTRANSFERASE 23 IU/L (0-55); ALBUMIN 4.1 g/dL (3.5-5.0); ALBUMIN/GLOBULIN RATIO 1.3 (0.8-2.0); ALKALINE PHOSPHATASE 66 IU/L (40-150); ANION GAP 16.3 mmol/L (8-16); BLOOD UREA NITROGEN 19 mg/dL (7-26); BUN/CREATININE RATIO 17 (6-25); CALCIUM 8.9 mg/dL (8.4-10.2); CARBON DIOXIDE 20 mmol/L (22-29); CHLORIDE 108 mmol/L (98-107); CREATININE, SERUM 1.09 mg/dL (0.72-1.25); EST GLOMERULAR FILTRATION RATE > 60 ML/MIN (60-); GLUCOSE 189 mg/dL (74-118); POTASSIUM 4.3 mmol/L (3.5-5.1); SODIUM 140 mmol/L (136-145)
[2021-04-12] MEDS ORDERED: PROTONIX20 MG PO (11:00)
[2021-04-12] MEDS ORDERED: GLYCOPYRROLATE INJ 0.2 MG/ML VIAL ONE (17:32)
[2021-04-12] MEDS ORDERED: POVIDONE IODINE 0.05% 0.05 % ML PO ONE (17:32)
[2021-04-12] MEDS ORDERED: DEXAMETHASONE SOD PHOS INJ 4 MG/ML VIAL ONE (17:32)
[2021-04-12] MEDS ORDERED: ONDANSETRON HCL INJ 2MG/ML 2ML 2 MG/ML VIAL ONE (17:32)
[2021-04-12] MEDS ORDERED: SEVOFLURANE INHAL SOLN 250 ML PEN BTL ONE (17:32)
[2021-04-12] MEDS ORDERED: PROPOFOL IV EMULSION 10 MG/ML 20 ML VIAL ONE (17:32)
[2021-04-12] MEDS ORDERED: LIDOCAINE HCL 2% LOCAL INJ 5 ML SDV VIAL INJ ONE (17:32)
[2021-04-13] MEDS ORDERED: VITAMIN D310 MCG PO (14:39)
== END 2021-04-12 14:20 | disposition home or self-care (01) ==
LOC: FSED 19:38 → ERHOLD 22:32 → MED/SURG3 04-12 00:41
PROVIDERS: ADMIT Internal Medicine; ATTEND Internal Medicine
DX: T18.128A Food in esophagus causing other injury, initial encounter (principal); Z20.822 Contact with and (suspected) exposure to COVID-19; K22.10 Ulcer of esophagus without bleeding; K29.70 Gastritis, unspecified, without bleeding; K22.2 Esophageal obstruction; G20 Parkinson's disease; K21.9 Gastro-esophageal reflux disease without esophagitis; I73.9 Peripheral vascular disease, unspecified; I11.9 Hypertensive heart disease without heart failure; E78.5 Hyperlipidemia, unspecified
CPT/HCPCS: 36415; 43247; 71250; 80053; 85025; 99284; C9113; G0378 ×2; J1610 ×2; J2270; J2405; J7030; U0002; 45379; J1100; J2001

== ENCOUNTER → 2021-04-18 | Day surgery (SDC) | payer MEDICARE, OTHER ==
[~2021-04-18] MED LIST changes: +LIDOCAINE HCL 2% LOCAL INJ 5 ML SDV VIAL INJ ONE; +PANTOPRAZOLE 40 MG 10ML VIAL ONE; +PROPOFOL IV EMULSION 10 MG/ML 20 ML VIAL ONE; +PROTONIX20 MG PO; +VITAMIN D310 MCG PO
[2021-04-18 10:12] VITALS: BP 114/82
== END | disposition home or self-care (01) ==
LOC: ENDO 06:57
PROVIDERS: ATTEND Internal Medicine Gastroenterology
DX: K22.2 Esophageal obstruction (principal); K29.70 Gastritis, unspecified, without bleeding; K22.10 Ulcer of esophagus without bleeding; K44.9 Diaphragmatic hernia without obstruction or gangrene; K21.9 Gastro-esophageal reflux disease without esophagitis; G20 Parkinson's disease; J44.9 Chronic obstructive pulmonary disease, unspecified; I10 Essential (primary) hypertension; Z01.810 Encounter for preprocedural cardiovascular examination; Z87.442 Personal history of urinary calculi
CPT/HCPCS: 43239; 43450; 93005; C9113; J2001; J2704

== ENCOUNTER → 2021-06-25 | Day surgery (SDC) | payer OTHER, MEDICARE ==
[2021-06-22 13:12] LABS: BASOPHILS % 0.5 % (0.0-1.0); EOSINOPHILS # (AUTO) 0.1 (0.0-0.4); EOSINOPHILS % 1.8 % (0.0-6.0); HEMOGLOBIN 13.4 g/dL (14.0-18.0); LYMPHOCYTES # (AUTO) 1.8 (1.0-3.2); LYMPHOCYTES % 29.9 % (18.0-39.1); MEAN CORPUSCULAR HEMOGLOBIN 29.1 pg (28-32); MEAN CORPUSCULAR HGB CONC 33.5 g/dL (31-35); MONOCYTES # (AUTO) 0.5 (0.2-0.8); MONOCYTES % 7.6 % (4.4-11.3); NEUTROPHILS # (AUTO) 3.6 (2.1-6.9); PLATELET COUNT 224 x10e3/uL (140-360); RED CELL DISTRIBUTION WIDTH 12.9 % (11.7-14.4)
[~2021-06-25] MED LIST changes: +ASPIRIN81 MG PO; -LIDOCAINE HCL 2% LOCAL INJ 5 ML SDV VIAL INJ ONE; +OMEGA 3 1,0001 EACH PO; -PANTOPRAZOLE 40 MG 10ML VIAL ONE; -PROPOFOL IV EMULSION 10 MG/ML 20 ML VIAL ONE
[2021-06-25 12:10] VITALS: BP 127/93
== END | disposition home or self-care (01) ==
LOC: OR 07:49
PROVIDERS: ATTEND Internal Medicine Gastroenterology
DX: K22.2 Esophageal obstruction (principal); K29.70 Gastritis, unspecified, without bleeding; K44.9 Diaphragmatic hernia without obstruction or gangrene; K31.7 Polyp of stomach and duodenum; K22.10 Ulcer of esophagus without bleeding; I10 Essential (primary) hypertension; Z68.28 Body mass index [BMI] 28.0-28.9, adult; Z01.810 Encounter for preprocedural cardiovascular examination; Z01.812 Encounter for preprocedural laboratory examination; Z20.822 Contact with and (suspected) exposure to COVID-19
CPT/HCPCS: 36415; 43239; 43450; 85025; C9113; U0002

== ENCOUNTER → 2022-01-12 | Outpatient (CLI) | payer BC | LOC: RAD 12:14 | PROVIDERS: ATTEND Internal Medicine | DX: J40 Bronchitis, not specified as acute or chronic (principal) | CPT/HCPCS: 71046 ==

== ENCOUNTER 2024-11-06 12:39 | Emergency (ER) | payer BC ==
[~2024-11-06] VITALS: Ht 188 cm; Wt 108.9 kg
[2024-11-06 12:52] VITALS: PULSE 72; RESP 16; TEMP 97.8
[2024-11-06 14:24] VITALS: BP 170/68; PULSE 74; RESP 16; TEMP 98; O2SAT 98
== END 2024-11-06 14:26 | disposition home or self-care (01) ==
LOC: FSED 12:44
DX: R53.1 Weakness (principal); I10 Essential (primary) hypertension; E78.5 Hyperlipidemia, unspecified; G20.A1 Parkinson's disease without dyskinesia, without mention of fluctuations; J44.9 Chronic obstructive pulmonary disease, unspecified; K21.9 Gastro-esophageal reflux disease without esophagitis; Z11.52 Encounter for screening for COVID-19
CPT/HCPCS: 0223U; 71046; 80053; 81003; 84484; 85025; 87400; 87420; 93005; 99283